=== PATIENT | male | born 1980 | race Caucasian/White ===

== ENCOUNTER 2018-07-15 13:17 | Inpatient (IN) | payer OTHER ==
[2018-07-15 17:15] VITALS: BMI 33.3
--- NOTE | 2018-07-15 21:21 | HP ---
CIWA Score - CIWA Score Nausea/Vomitin Muscle Tremors: 2 Anxiety: 3 Agitation: 4-Moderately Restless Paroxysmal Sweats: 2 Orientation: 0-Oriented Tacttile Disturbances: 3-Moderate Itch/Numb/Burn Auditory Disturbances: 0-None Visual Disturbances: 0-None Headache: 0-None Present CIWA-Ar Total Score: 17 Admission ROS BHS - HPI Chief Complaint: alcohol withdrawal symptoms Allergies/Adverse Reactions: Allergies Allergy/AdvReac Type Severity Reaction Status Date / Time No Known Allergies Allergy Verified 03/10/16 21:34 History of Present Illness: 38 yo male with hx of chronic alcohol dependence is here seeking detox. Last detox [facility] May 2018. Reports hx of frequent EOTH related blackouts with last episode yesterday. Denies hx of DTS or seizures. PMHX: HTN, asthma, PTSD, depression and anxiety. Denies suicidal / homicidal ideation. Reports longets period of sobriety seven years while incarcerated, reports released from intermediate April 2018 and relapsed. Exam Limitations: No Limitations - Ebola screening Have you traveled outside of the country in the last 21 days: No Have you had contact with anyone from an Ebola affected area: No Have you been sick,other than usual withdrawal symptoms: No Do you have a fever: No - Review of Systems Constitutional: Chills, Changes in sleep, Other (anxiety) EENT: reports: No Symptoms Reported Respiratory: reports: No Symptoms reported Cardiac: reports: Lightheadedness, Palpitations GI: reports: Diarrhea, Nausea, Poor Appetite, Poor Fluid Intake, Abdominal cramping : reports: No Symptoms Reported Musculoskeletal: reports: No Symptoms Reported Integumentary: reports: No Symptoms Reported Neuro: reports: No Symptoms reported Endocrine: reports: Increased Thirst Hematology: reports: No Symptoms Reported Psychiatric: reports: Orientated x3, Anxious Other Systems: Reviewed and Negative Patient History - Patient Medical History Hx Anemia: No Hx Asthma: Yes Hx Chronic Obstructive Pulmonary Disease (COPD): No Hx Cancer: No Hx Cardiac Disorders: No Hx Congestive Heart Failure: No Hx Hypertension: Yes Hx Hypercholesterolemia: No Hx Pacemaker: No HX Cerebrovascular Accident: No Hx Seizures: No Hx Dementia: No Hx Diabetes: No Hx Gastrointestinal Disorders: No Hx Liver Disease: No Hx Genitourinary Disorders: No Hx Sexually Transmitted Disorders: No Hx Renal Disease (ESRD): No Hx Thyroid Disease: No Hx Human Immunodeficiency Virus (HIV): No (LAST 07/23/15 NEGATIVE) Hx Hepatitis C: No Hx Depression: Yes (AND ANXIETY - ON trazodone, seroquel AND ZOLOFT) Hx Suicide Attempt: No Hx Bipolar Disorder: No Hx Schizophrenia: No - Patient Surgical History Past Surgical History: No Hx Neurologic Surgery: No Hx Cataract Extraction: No Hx Cardiac Surgery: No Hx Lung Surgery: No Hx Breast Surgery: No Hx Breast Biopsy: No Hx Abdominal Surgery: No Hx Appendectomy: No Hx Cholecystectomy: No Hx Genitourinary Surgery: No Hx Section: No Hx Orthopedic Surgery: No Anesthesia Reaction: No - PPD History Previous Implant?: Yes Documented Results: Negative w/proof Date: 10/11/15 Results: 0 mm PPD to be Administered?: Yes - Smoking Cessation Smoking history: Current every day smoker Have you smoked in the past 12 months: No Aproximately how many cigarettes per day: 3 Hx Chewing Tobacco Use: No Initiated information on smoking cessation: Yes 'Breaking Loose' booklet given: 07/15/18 - Substance & Tx. History Hx Alcohol Use: Yes Hx Substance Use: Yes Substance Use Type: Alcohol Hx Substance Use Treatment: Yes ([facility] May 2018.) - Substances Abused Alcohol Route: Oral Frequency: Daily Amount used: 3 pints vodka + 22 oz x 2 beers Age of first use: 8 Date of Last Use: 07/15/18 Family Disease History - Family Disease History Family Disease History: Other: Father (ALCOHOL,DSA), Mother (WAS ADDICTED TO DRUGS AND STOPPED NOW) Admission Physical Exam BHS - Vital Signs Vital Signs: Vital Signs - 24 hr 07/15/18 17:13 Temperature 98.3 F Pulse Rate 119 H Respiratory 18 Rate Blood Pressure 129/85 - Physical General Appearance: Yes: Disheveled, Moderate Distress, Obese, Sweating, Anxious HEENTM: Yes: Hearing grossly Normal, Normal ENT Inspection, Normocephalic, Normal Voice, REBECA, Pharynx Normal, Tm's normal Respiratory: Yes: Chest Non-Tender, Lungs Clear, Normal Breath Sounds, No Respiratory Distress, No Accessory Muscle Use Neck: Yes: Within Normal Limits Breast: Yes: Breast Exam Deferred Cardiology: Yes: Regular Rhythm, Tachycardia Abdominal: Yes: Normal Bowel Sounds, Non Tender, Soft, Protuberent Genitourinary: Yes: Within Normal Limits Back: Yes: Normal Inspection Extremities: Yes: Normal Capillary Refill, Normal Inspection, Normal Range of Motion, Non-Tender Neurological: Yes: pulverizer tender II-XII NML intact, Fully Oriented, Alert, Motor Strength 5/5, Depressed Affect Integumentary: Yes: Normal Color, Warm, Diaphoresis Lymphatic: Yes: Within Normal Limits - Diagnostic (1) Alcohol dependence with uncomplicated withdrawal Current Visit: Yes Status: Acute (2) Nicotine dependence Current Visit: Yes Status: Acute Qualifiers: Nicotine product type: cigarettes Substance use status: uncomplicated Qualified Code(s): F17.210 - Nicotine dependence, cigarettes, uncomplicated (3) Asthma Current Visit: Yes Status: Chronic Qualifiers: Asthma severity: mild intermittent Asthma complication type: uncomplicated Qualified Code(s): J45.20 - Mild intermittent asthma, uncomplicated (4) HTN (hypertension) Current Visit: Yes Status: Chronic Qualifiers: Hypertension type: essential hypertension Qualified Code(s): I10 - Essential (primary) hypertension Comment: no meds Cleared for Admission S - Detox or Rehab [facility] Level of Care: Medically Managed Detox Regimen/Protocol: Librium [facility] Breath Alcohol Content Breath Alcohol Content: 0.218 Urine Drug Screen - Results Drug Screen Negative: Yes
[2018-07-15] MEDS ORDERED: IBUPROFEN 400 MG TABLET (FP) PO PRN (21:25)
[2018-07-15] MEDS ORDERED: MAGNESIUM CITRATE 300 ML BOTTLE PO PRN (21:25)
[2018-07-15] MEDS ORDERED: MENTHOL/PHENOL 1 EACH UD MM PRN (21:25)
[2018-07-15] MEDS ORDERED: NICOTINE POLACRILEX 2 MG GUM BC PRN (21:25)
[2018-07-15] MEDS ORDERED: MAG HYDROX/AL HYDROX/SIMETH 30 ML UNIT-DOSE CUP PO PRN (21:25)
[2018-07-15] MEDS ORDERED: LOPERAMIDE HCL 2 MG CAPSULE PO PRN (21:25)
[2018-07-15] MEDS ORDERED: guaiFENesin/D-METHORPHAN HB 10 ML UNIT-DOSE CUPS PO PRN (21:25)
[2018-07-15] MEDS ORDERED: ACETAMINOPHEN 325 MG TABLET (FP) PO PRN (21:25)
[2018-07-15] MEDS ORDERED: MAGNESIUM HYDROX 2400MG/30ML ORAL SUSPENSION 30 ML CUP PO PRN (21:25)
[2018-07-15] MEDS ORDERED: P-EPHED 60MG/TRIPROLIDI 2.5MG TABLET PO PRN (21:25)
[2018-07-15] MEDS ORDERED: ALBUTEROL SO4 0.083% IH SOL 2.5 MG/3 ML VIAL.NEB. NEB PRN (21:32)
[2018-07-15] MEDS ORDERED: cloNIDine HCL 0.1 MG TABLET PO ONE (21:33)
[2018-07-15] MEDS ORDERED: MELATONIN 5 MG TABLETS PO PRN (22:00)
[2018-07-15] MEDS: chlordiazePOXIDE HCL 25 MG CAPSULE PO SCH (23:39)
[2018-07-15] MEDS: THIAMINE HCL 100 MG TABLET (FP) PO SCH (23:41)
[2018-07-16] MEDS: chlordiazePOXIDE HCL 25 MG CAPSULE PO SCH ×4 (05:55→22:20)
[2018-07-16] MEDS: ALBUTEROL SO4 8 GM HFA INHALER IH PRN (08:52)
--- NOTE | 2018-07-16 09:34 | EKG ---
Test Reason : Blood Pressure : / mmHG Vent. Rate : 106 BPM Atrial Rate : 106 BPM P-R Int : 142 ms QRS Dur : 104 ms QT Int : 348 ms P-R-T Axes : 058 -16 040 degrees QTc Int : 462 ms SINUS TACHYCARDIA INCOMPLETE RIGHT BUNDLE BRANCH BLOCK NO PREVIOUS ECGS AVAILABLE Confirmed by JANIE ESTRADA MD ([id number]) on 07/16/2018 9:34:27 AM Referred By: Confirmed By:JANIE ESTRADA MD
[2018-07-16] MEDS: LORATADINE 10 MG TABLET PO SCH (10:15)
[2018-07-16] MEDS: NICOTINE 14 MG/24 HOURS TOPICAL PATCH TD SCH (10:15)
[2018-07-16] MEDS: PRENATAL VITAMINS W/ FOLIC ACID TABLET (FP) PO SCH (10:15)
--- NOTE | 2018-07-16 10:40 | PN ---
S CIWA - CIWA Score Nausea/Vomitin-No Nausea/No Vomiting Muscle Tremors: None Anxiety: 1-Mildly Anxious Agitation: 1-Slight > Activity Paroxysmal Sweats: No Perspiration Orientation: 0-Oriented Tacttile Disturbances: 0-None Auditory Disturbances: 0-None Visual Disturbances: 0-None Headache: 0-None Present CIWA-Ar Total Score: 2 BHS Progress Note (SOAP) Subjective: PATIENT PRESENTS WITH MILD ANXIETY AND PACING IN HALLWAY Objective: 07/16/18 10:39 Vital Signs Temperature 97.4 F L 07/16/18 09:53 Pulse Rate 98 H 07/16/18 09:53 Respiratory Rate 20 07/16/18 09:53 Blood Pressure 127/88 07/16/18 09:53 O2 Sat by Pulse Oximetry (%) PE: ALERT AND ORIENTED SKIN WARM AND DRY CAR S1S2 RESP CTA BL EXT NO EDEMA Assessment: 07/16/18 10:39 WITHDRAWAL SYNDROME Plan: CONTINUE ORAL FLUIDS CONTINUE DETOX PER PROTOCOL CONTINUE TO MONITOR CLINICALLY
[2018-07-16 11:13] LABS: HEMATOCRIT 40.6 % (35.4-49); HEMOGLOBIN 13.5 GM/dL (11.7-16.9); MCHC 33.1 g/dl (32.0-35.9); MEAN CELL VOLUME 87.5 fl (80-96); MEAN PLT VOLUME 7.3 fl (7.5-11.1); PLATELET COUNT 285 K/MM3 (134-434); RBC 4.64 M/mm3 (4.00-5.60); RDW 14.5 % (11.9-15.9); WHITE BLOOD COUNT 6.5 K/mm3 (4.0-10.0)
[2018-07-16 11:20] LABS: CHLORIDE 106 mmol/L (98-107); POTASSIUM 3.4 mmol/L (3.5-5.1); SODIUM 146 mmol/L (136-145)
[2018-07-16 11:32] LABS: ALBUMIN 3.7 g/dl (3.4-5.0); ALK PHOS 100 U/L (45-117); ANION GAP 13 MMOL/L (8-16); BILIRUBIN,TOTAL 0.6 mg/dL (0.2-1.0); BLOOD UREA NITROGEN 13 mg/dL (7-18); CALCIUM 8.5 mg/dL (8.5-10.1); CO2 27 mmol/L (21-32); CREATININE 0.8 mg/dL (0.55-1.3); GLUCOSE,RANDOM 110 mg/dL (74-106); SGOT/AST 31 U/L (15-37); SGPT/ALT 39 U/L (13-61); TOT PROT 7.2 g/dl (6.4-8.2)
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
[2018-07-16] MEDS: chlordiazePOXIDE HCL 25 MG CAPSULE PO PRN (14:22)
[2018-07-16 15:55] LABS: URINE APPEARANCE CLEAR; URINE BILIRUBIN NEGATIVE (<2.0 mg/dL); URINE COLOR YELLOW; URINE GLUCOSE (UA) NEGATIVE (NEGATIVE); URINE KETONE NEGATIVE (NEGATIVE); URINE LEUK ESTERASE NEGATIVE (NEGATIVE); URINE NITRITE NEGATIVE (NEGATIVE); URINE PROTEIN NEGATIVE (NEGATIVE); URINE UROBILINOGEN NEGATIVE mg/dL (0.2-1.0)
[2018-07-16] MEDS: THIAMINE HCL 100 MG TABLET (FP) PO SCH (22:20)
[2018-07-17] MEDS: chlordiazePOXIDE HCL 25 MG CAPSULE PO SCH ×3 (05:15→17:13)
[2018-07-17] MEDS: LORATADINE 10 MG TABLET PO SCH (10:32)
[2018-07-17] MEDS: NICOTINE 14 MG/24 HOURS TOPICAL PATCH TD SCH (10:32)
[2018-07-17] MEDS: PRENATAL VITAMINS W/ FOLIC ACID TABLET (FP) PO SCH (10:32)
[2018-07-17 11:59] LABS: ANION GAP 11 MMOL/L (8-16); BLOOD UREA NITROGEN 7 mg/dL (7-18); CALCIUM 8.6 mg/dL (8.5-10.1); CHLORIDE 103 mmol/L (98-107); CO2 29 mmol/L (21-32); CREATININE 0.8 mg/dL (0.55-1.3); GLUCOSE,RANDOM 87 mg/dL (74-106); POTASSIUM 3.6 mmol/L (3.5-5.1); SODIUM 143 mmol/L (136-145)
--- NOTE | 2018-07-17 14:03 | PN ---
BHS Progress Note (SOAP) Subjective: doing well with detox meds , denies symptoms Objective: 07/17/18 14:02 aaox 3 , ambulating freely , nad Assessment: 07/17/18 14:02 alcohol dependence Plan: continue taper
[2018-07-17] MEDS: chlordiazePOXIDE HCL 25 MG CAPSULE PO PRN (14:40)
[2018-07-17] MEDS: chlordiazePOXIDE 5 MG CAPSULE PO SCH (22:19)
[2018-07-17] MEDS: THIAMINE HCL 100 MG TABLET (FP) PO SCH (22:19)
[2018-07-17] MEDS: ALBUTEROL SO4 8 GM HFA INHALER IH PRN (22:21)
[2018-07-18] MEDS: chlordiazePOXIDE 5 MG CAPSULE PO SCH ×3 (05:48→17:09)
[2018-07-18] MEDS: LORATADINE 10 MG TABLET PO SCH (10:25)
[2018-07-18] MEDS: PRENATAL VITAMINS W/ FOLIC ACID TABLET (FP) PO SCH (10:25)
[2018-07-18] MEDS: NICOTINE 14 MG/24 HOURS TOPICAL PATCH TD SCH (10:26)
--- NOTE | 2018-07-18 14:36 | PN ---
S Progress Note (SOAP) Subjective: Denies any complaints; appears anxious Objective: 07/18/18 14:34 Last Vital Signs Temp Pulse Resp BP Pulse Ox 97.8 F 98 H 18 127/89 07/18/18 13:49 07/18/18 13:49 07/18/18 13:49 07/18/18 13:49 Laboratory Tests 07/16/18 07/16/18 07/16/18 07:20 07:20 07:20 WBC 6.5 RBC 4.64 Hgb 13.5 Hct 40.6 MCV 87.5 MCH 29.0 MCHC 33.1 RDW 14.5 Plt Count 285 D MPV 7.3 L Sodium 146 H Potassium 3.4 L Chloride 106 Carbon Dioxide 27 Anion Gap 13 BUN 13 Creatinine 0.8 Creat Clearance w eGFR > 60 Random Glucose 110 H Calcium 8.5 Total Bilirubin 0.6 AST 31 ALT 39 Alkaline Phosphatase 100 Total Protein 7.2 Albumin 3.7 Urine Color Urine Appearance Urine pH Ur Specific [place] Urine Protein Urine Glucose (UA) Urine Ketones Urine Blood Urine Nitrite Urine Bilirubin Urine Urobilinogen Ur Leukocyte Esterase RPR Titer Nonreactive 07/16/18 07/17/18 13:00 07:50 WBC RBC Hgb Hct MCV MCH MCHC RDW Plt Count MPV Sodium 143 Potassium 3.6 Chloride 103 Carbon Dioxide 29 Anion Gap 11 BUN 7 Creatinine 0.8 Creat Clearance w eGFR > 60 Random Glucose 87 Calcium 8.6 Total Bilirubin AST ALT Alkaline Phosphatase Total Protein Albumin Urine Color Yellow Urine Appearance Clear Urine pH 7.0 Ur Specific [place] 1.019 Urine Protein Negative Urine Glucose (UA) Negative Urine Ketones Negative Urine Blood Negative Urine Nitrite Negative Urine Bilirubin Negative Urine Urobilinogen Negative Ur Leukocyte Esterase Negative RPR Titer Labs reviewed Assessment: 07/18/18 14:35 Withdrawal symptoms Plan: Continue detox Encouraged PO water hydration
[2018-07-18] MEDS: ALBUTEROL SO4 8 GM HFA INHALER IH PRN (22:11)
[2018-07-18] MEDS: THIAMINE HCL 100 MG TABLET (FP) PO SCH (22:11)
[2018-07-18] MEDS: chlordiazePOXIDE HCL 10 MG CAPSULE PO SCH (22:11)
[2018-07-19] MEDS: chlordiazePOXIDE HCL 10 MG CAPSULE PO SCH ×2 (06:05→10:38)
[2018-07-19 09:13] VITALS: BP 132/81; PULSE 93; TEMP 98.4
--- NOTE | 2018-07-19 10:30 | DS ---
[facility] Detox Discharge Summary Admission Date: 07/15/18 Discharge Date: 07/19/18 - History Additional Comments: Pt in stable conditions, being discharged. Pt states he is going back to his [facility] treatment center - [facility] program. States he does not have a PCP but is in the process of getting one. Does not need albuterol rx, said he has his own. Pertinent Past History: Asthma Psych Hx - Physical Exam Results Vital Signs: Vital Signs Temperature 98.4 F 07/19/18 09:12 Pulse Rate 93 H 07/19/18 09:12 Respiratory Rate 20 07/19/18 09:12 Blood Pressure 132/81 07/19/18 09:12 O2 Sat by Pulse Oximetry (%) Pertinent Admission Physical Exam Findings: withdrawal sx - Treatment Hospital Course: Detox Protocol Followed Patient has Accepted a Rehab Referral to: [facility] - Medication Discharge Medications: Ambulatory Orders Albuterol Sulfate Inhaler - [Ventolin HFA Inhaler -] 1 - 2 inh PO Q4H 11/28/15 - Diagnosis (1) Alcohol dependence with uncomplicated withdrawal Current Visit: Yes Status: Acute (2) Asthma Current Visit: Yes Status: Chronic Qualifiers: Asthma severity: mild intermittent Asthma complication type: uncomplicated Qualified Code(s): J45.20 - Mild intermittent asthma, uncomplicated (3) Nicotine dependence Current Visit: Yes Status: Chronic Qualifiers: Nicotine product type: cigarettes Substance use status: uncomplicated Qualified Code(s): F17.210 - Nicotine dependence, cigarettes, uncomplicated (4) Anxiety and depression Current Visit: Yes Status: Chronic (5) Chronic low back pain Current Visit: Yes Status: Chronic (6) Drug-induced mood disorder Current Visit: Yes Status: Chronic - AMA Did Patient Leave Against Medical Advice: No
--- NOTE | 2018-07-19 10:34 | PN ---
BHS Progress Note (SOAP) Subjective: denies any complaint Objective: 07/19/18 10:33 A & O x 3 Gait steady Vital Signs Temperature 98.4 F 07/19/18 09:12 Pulse Rate 93 H 07/19/18 09:12 Respiratory Rate 20 07/19/18 09:12 Blood Pressure 132/81 07/19/18 09:12 O2 Sat by Pulse Oximetry (%) Assessment: 07/19/18 10:33 detox safely concluded Plan: for discharge
[2018-07-19] MEDS: LORATADINE 10 MG TABLET PO SCH (10:37)
[2018-07-19] MEDS: NICOTINE 14 MG/24 HOURS TOPICAL PATCH TD SCH (10:37)
[2018-07-19] MEDS: PRENATAL VITAMINS W/ FOLIC ACID TABLET (FP) PO SCH (10:37)
== END 2018-07-19 10:48 | disposition home or self-care (01) | DRG 775 ==
LOC: YASAS 13:17 → Y3N 20:42
PROC: HZ2ZZZZ Detoxification Services for Substance Abuse Treatment (ICD-10-PCS; principal; 2018-07-15)
DX: F10.230 Alcohol dependence with withdrawal, uncomplicated (principal); F17.210 Nicotine dependence, cigarettes, uncomplicated; F10.24 Alcohol dependence with alcohol-induced mood disorder; F19.24 Other psychoactive substance dependence with psychoactive substance-induced mood disorder; F41.8 Other specified anxiety disorders; F33.9 Major depressive disorder, recurrent, unspecified; F43.10 Post-traumatic stress disorder, unspecified; I10 Essential (primary) hypertension; J45.20 Mild intermittent asthma, uncomplicated; M54.5 Low back pain; G89.29 Other chronic pain; Z91.5 Personal history of self-harm
CPT/HCPCS: 36415; 80048; 80053; 81003; 85027; 86593; 93005; 93010; J0735

== ENCOUNTER 2018-11-26 11:19 | Inpatient (IN) | payer OTHER ==
[2018-11-26 11:48] VITALS: BMI 31.9
--- NOTE | 2018-11-26 12:03 | HP ---
CIWA Score Nausea/Vomitin Muscle Tremors: 3 Anxiety: 3 Agitation: 2 Paroxysmal Sweats: 2 Orientation: 0-Oriented Tacttile Disturbances: 1-Very Mild Itch/Numbness Auditory Disturbances: 1-Very Mild (HEARS VOICES WHEN WITHDRAWING) Visual Disturbances: 1-Very Mild Sensitivity (SEES SHADOWS MOVING - DISAPPEARING ) Headache: 0-None Present CIWA-Ar Total Score: 16 - Admission Criteria [facility] Guidelines: Admission for Medically Managed Detox: Requires at least one of the followin. CIWA greater than 12 2. Seizures within the past 24 hours 3. Delirium tremens within the past 24 hours 4. Hallucinations within the past 24 hours 5. Acute intervention needed for co occurring medical disorder 6. Acute intervention needed for co occurring psychiatric disorder 7. Severe withdrawal that cannot be handled at a lower level of care (continued vomiting, continued diarrhea, abnormal vital signs) requiring intravenous medication and/or fluids 8. Patient presents the following: CIWA greater than 12 Admission Criteria Met: Admission criteria met Admission ROS BHS - HPI Chief Complaint: i'M TIRED OF FEELING SICK AFTER DRINKING Allergies/Adverse Reactions: Allergies Allergy/AdvReac Type Severity Reaction Status Date / Time No Known Allergies Allergy Verified 07/15/18 22:46 History of Present Illness: 38 Y/O M PT WITH H/O ETOH DEP. SEEKING DETOX AND REHAB Exam Limitations: No Limitations - Ebola screening Have you traveled outside of the country in the last 21 days: No Have you had contact with anyone from an Ebola affected area: No Have you been sick,other than usual withdrawal symptoms: No Do you have a fever: No - Review of Systems Constitutional: Loss of Appetite, Malaise, Changes in sleep, Unexplained wgt Loss (10 LBS X 3 WEEKS) EENT: reports: Ear Pain (RT EAR PAIN 2 DAYS AGO.) Respiratory: reports: Wheezing Cardiac: reports: No Symptoms Reported GI: reports: Diarrhea, Nausea, Poor Appetite, Vomiting, Indigestion : reports: No Symptoms Reported Musculoskeletal: reports: No Symptoms Reported Integumentary: reports: No Symptoms Reported Neuro: reports: Tremors, Other (BLACKOUTS LAST 1 WEEK AGO) Endocrine: reports: No Symptoms Reported Hematology: reports: No Symptoms Reported Psychiatric: reports: Anxious, Depressed Other Systems: Reviewed and Negative Patient History - Patient Medical History Hx Anemia: No Hx Asthma: Yes (ALBUTEROL ) Hx Chronic Obstructive Pulmonary Disease (COPD): No Hx Cancer: No Hx Cardiac Disorders: No Hx Congestive Heart Failure: No Hx Hypertension: Yes (NO MEDS ) Hx Hypercholesterolemia: No Hx Pacemaker: No HX Cerebrovascular Accident: No Hx Seizures: No Hx Dementia: No Hx Diabetes: No Hx Gastrointestinal Disorders: No Hx Liver Disease: No Hx Genitourinary Disorders: No Hx Sexually Transmitted Disorders: No Hx Renal Disease (ESRD): No Hx Thyroid Disease: No Hx Human Immunodeficiency Virus (HIV): No (LAST 07/23/15 NEGATIVE) Hx Hepatitis C: No Hx Depression: Yes (AND ANXIETY - ON trazodone, seroquel AND ZOLOFT) Hx Suicide Attempt: No Hx Bipolar Disorder: No Hx Schizophrenia: No Other Medical History: LOW BACK PAINS - Patient Surgical History Past Surgical History: No Hx Neurologic Surgery: No Hx Cataract Extraction: No Hx Cardiac Surgery: No Hx Lung Surgery: No Hx Breast Surgery: No Hx Breast Biopsy: No Hx Abdominal Surgery: No Hx Appendectomy: No Hx Cholecystectomy: No Hx Genitourinary Surgery: No Hx Section: No Hx Orthopedic Surgery: No Anesthesia Reaction: No - PPD History Date: 07/17/18 Results: 0 mm PPD to be Administered?: No - Reproductive History Patient is a Female of Child Bearing Age (11 -55 yrs old): No - Smoking Cessation Smoking history: Current every day smoker Have you smoked in the past 12 months: No Aproximately how many cigarettes per day: 3 Cigars Per Day: 0 Hx Chewing Tobacco Use: No Initiated information on smoking cessation: Yes 'Breaking Loose' booklet given: 11/26/18 - Substance & Tx. History Hx Alcohol Use: Yes Hx Substance Use: Yes Substance Use Type: Alcohol, Marijuana - Substances Abused Alcohol Route: Oral Frequency: Daily Amount used: VODKA 1- FIFTH /DAY Age of first use: 11 Date of Last Use: 11/26/18 Marijuana/Hashish Route: Smoking Frequency: 1-3 times last 30 days Amount used: 2-3 PUFFS Age of first use: 11 Date of Last Use: 11/24/18 Family Disease History - Family Disease History Family Disease History: Other: Father (ALCOHOL,DSA), Mother (WAS ADDICTED TO DRUGS AND STOPPED NOW) Admission Physical Exam BHS - Vital Signs Vital Signs: Vital Signs - 24 hr 11/26/18 11:47 Temperature 98.4 F Pulse Rate 116 H Respiratory 18 Rate Blood Pressure 136/92 38 Y/O M PT AOX3, ANXIOUS , TREMULOUS, COOPERATING WITH EXAM. - Physical General Appearance: Yes: Appropriately Dressed, Obese, Tremorous, Sweating, Anxious HEENTM: Yes: EOMI, Hearing grossly Normal, Normal ENT Inspection, Normocephalic , Normal Voice, REBECA, Pharynx Normal Respiratory: Yes: Chest Non-Tender, Lungs Clear, Normal Breath Sounds, No Respiratory Distress Neck: Yes: No masses,lesions,Nodules, Supple, Trachea in good position Breast: Yes: Breast Exam Deferred, Within Normal Limits Cardiology: Yes: Within Normal Limits, Regular Rhythm, S1, S2, Tachycardia Abdominal: Yes: Soft, Increased Bowel Sounds, Tenderness (DIFFUSE TENDERNESS , NO REBOUND) Genitourinary: Yes: Frequency Back: Yes: Within Normal Limits, Decreased Range of Motion Musculoskeletal: Yes: Back pain Extremities: Yes: Tremors Neurological: Yes: claim manager II-XII NML intact, Fully Oriented, Alert, Normal Response Integumentary: Yes: Diaphoresis Lymphatic: Yes: Within Normal Limits - Diagnostic (1) Cannabis abuse Current Visit: Yes Status: Chronic (2) Alcohol dependence Current Visit: Yes Status: Chronic Qualifiers: Substance use status: uncomplicated Qualified Code(s): F10.20 - Alcohol dependence, uncomplicated (3) Anxiety and depression Current Visit: Yes Status: Chronic (4) Asthma Current Visit: Yes Status: Chronic Qualifiers: Asthma severity: mild Asthma complication type: uncomplicated Qualified Code(s): J45.20 - Mild intermittent asthma, uncomplicated (5) Chronic low back pain Current Visit: Yes Status: Chronic Qualifiers: Back pain laterality: unspecified (6) Nicotine abuse Current Visit: Yes Status: Chronic Cleared for Admission [facility] - Detox or Rehab [facility] Level of Care: Medically Managed Detox Regimen/Protocol: Librium [facility] Breath Alcohol Content Breath Alcohol Content: 0.060 Urine Drug Screen - Results Drug Screen Negative: No Urine Drug Screen Results: THC-Marijuana
[2018-11-26] MEDS ORDERED: MAGNESIUM CITRATE 300 ML BOTTLE PO PRN (12:26)
[2018-11-26] MEDS ORDERED: ACETAMINOPHEN 325 MG TABLET (FP) PO PRN (12:26)
[2018-11-26] MEDS ORDERED: MAGNESIUM HYDROX 2400MG/30ML ORAL SUSPENSION 30 ML CUP PO PRN (12:26)
[2018-11-26] MEDS ORDERED: guaiFENesin/D-METHORPHAN HB 10 ML UNIT-DOSE CUPS PO PRN (12:26)
[2018-11-26] MEDS ORDERED: MAG HYDROX/AL HYDROX/SIMETH 30 ML UNIT-DOSE CUP PO PRN (12:26)
[2018-11-26] MEDS ORDERED: IBUPROFEN 400 MG TABLET (FP) PO PRN (12:26)
[2018-11-26] MEDS ORDERED: MENTHOL/PHENOL 1 EACH UD MM PRN (12:26)
[2018-11-26] MEDS ORDERED: P-EPHED 60MG/TRIPROLIDI 2.5MG TABLET PO PRN (12:26)
[2018-11-26] MEDS ORDERED: ALBUTEROL SO4 8 GM HFA INHALER IH PRN (12:28)
[2018-11-26] MEDS: chlordiazePOXIDE HCL 25 MG CAPSULE PO PRN (14:18)
[2018-11-26] MEDS: LOPERAMIDE HCL 2 MG CAPSULE PO PRN ×2 (14:18→23:24)
[2018-11-26] MEDS: chlordiazePOXIDE HCL 25 MG CAPSULE PO SCH ×2 (18:22→23:24)
[2018-11-26] MEDS ORDERED: MELATONIN 5 MG TABLETS PO PRN (22:00)
[2018-11-26] MEDS: THIAMINE HCL 100 MG TABLET (FP) PO SCH (23:27)
[2018-11-27] MEDS: chlordiazePOXIDE HCL 25 MG CAPSULE PO SCH ×2 (05:06→10:42)
[2018-11-27] MEDS: PRENATAL VITAMINS W/ FOLIC ACID TABLET (FP) PO SCH (10:41)
[2018-11-27 11:01] LABS: HEMATOCRIT 45.3 % (35.4-49); HEMOGLOBIN 15.6 GM/dL (11.7-16.9); MCH 31.1 pg (25.7-33.7); MCHC 34.5 g/dl (32.0-35.9); MEAN CELL VOLUME 90.2 fl (80-96); MEAN PLT VOLUME 8.2 fl (7.5-11.1); PLATELET COUNT 255 K/MM3 (134-434); RBC 5.02 M/mm3 (4.00-5.60); RDW 15.3 % (11.9-15.9); WHITE BLOOD COUNT 11.1 K/mm3 (4.0-10.0)
[2018-11-27 11:24] LABS: ALBUMIN 4.4 g/dl (3.4-5.0); ALK PHOS 104 U/L (45-117); ANION GAP 8 MMOL/L (8-16); BILIRUBIN,TOTAL 0.9 mg/dL (0.2-1); BLOOD UREA NITROGEN 9 mg/dL (7-18); CALCIUM 9.1 mg/dL (8.5-10.1); CHLORIDE 98 mmol/L (98-107); CO2 29 mmol/L (21-32); CREATININE 1.1 mg/dL (0.55-1.3); GLUCOSE,RANDOM 88 mg/dL (74-106); SGOT/AST 65 U/L (15-37); SGPT/ALT 61 U/L (13-61); SODIUM 135 mmol/L (136-145); TOT PROT 8.6 g/dl (6.4-8.2)
[2018-11-27] MEDS ORDERED: FLU VACCINE QUAD 60 MCG/0.5 ML (MDV 18-19) IM ONE (12:00)
--- NOTE | 2018-11-27 12:19 | PN ---
S CIWA - CIWA Score Nausea/Vomitin Muscle Tremors: 2 Anxiety: 2 Agitation: 2 Paroxysmal Sweats: 2 Orientation: 0-Oriented Tacttile Disturbances: 1-Very Mild Itch/Numbness Auditory Disturbances: 1-Very Mild Visual Disturbances: 0-None Headache: 0-None Present CIWA-Ar Total Score: 12 S Progress Note (SOAP) Subjective: N/D, abdominal discomfort and back pain Objective: 11/27/18 12:16 Vital Signs 11/27/18 11/27/18 11/27/18 06:00 06:20 09:43 Temperature 98.2 F 98.2 F Pulse Rate 78 81 Respiratory 18 18 18 Rate Blood Pressure 135/85 117/59 L Laboratory Last Values WBC 11.1 K/mm3 (4.0-10.0) H 11/27/18 05:40 RBC 5.02 M/mm3 (4.00-5.60) 11/27/18 05:40 Hgb 15.6 GM/dL (11.7-16.9) 11/27/18 05:40 Hct 45.3 % (35.4-49) 11/27/18 05:40 MCV 90.2 fl (80-96) 11/27/18 05:40 MCH 31.1 pg (25.7-33.7) 11/27/18 05:40 MCHC 34.5 g/dl (32.0-35.9) 11/27/18 05:40 RDW 15.3 % (11.9-15.9) 11/27/18 05:40 Plt Count 255 K/MM3 (134-434) 11/27/18 05:40 MPV 8.2 fl (7.5-11.1) D 11/27/18 05:40 Sodium 135 mmol/L (136-145) L 11/27/18 05:40 Potassium 3.0 mmol/L (3.5-5.1) L 11/27/18 05:40 Chloride 98 mmol/L (98-107) 11/27/18 05:40 Carbon Dioxide 29 mmol/L (21-32) 11/27/18 05:40 Anion Gap 8 MMOL/L (8-16) 11/27/18 05:40 BUN 9 mg/dL (7-18) 11/27/18 05:40 Creatinine 1.1 mg/dL (0.55-1.3) 11/27/18 05:40 Creat Clearance w eGFR > 60 (>60) 11/27/18 05:40 Random Glucose 88 mg/dL (74-106) 11/27/18 05:40 Calcium 9.1 mg/dL (8.5-10.1) 11/27/18 05:40 Total Bilirubin 0.9 mg/dL (0.2-1) 11/27/18 05:40 AST 65 U/L (15-37) H 11/27/18 05:40 ALT 61 U/L (13-61) 11/27/18 05:40 Alkaline Phosphatase 104 U/L (45-117) 11/27/18 05:40 Total Protein 8.6 g/dl (6.4-8.2) H 11/27/18 05:40 Albumin 4.4 g/dl (3.4-5.0) 11/27/18 05:40 HIV 1&2 Antibody Screen Negative 11/26/18 13:30 HIV P24 Antigen Negative 11/26/18 13:30 Labs noted-low potassium and sodium levels Assessment: 11/27/18 12:17 Withdrawal sx Hypokalemia Plan: Continue detox Potassium 40 meq PO QD Repeat BMP on 11/29
[2018-11-27] MEDS: POTASSIUM CHLORIDE TABS 20 MEQ TABLET.ER (FP) PO SCH (13:06)
--- NOTE | 2018-11-27 13:25 | EKG ---
Test Reason : Blood Pressure : / mmHG Vent. Rate : 110 BPM Atrial Rate : 110 BPM P-R Int : 140 ms QRS Dur : 104 ms QT Int : 326 ms P-R-T Axes : 052 015 049 degrees QTc Int : 441 ms SINUS TACHYCARDIA INCOMPLETE RIGHT BUNDLE BRANCH BLOCK WHEN COMPARED WITH ECG OF 15-JUL-2018 23:22, NO SIGNIFICANT CHANGE WAS FOUND Confirmed by JANIE ESTRADA MD ([id number]) on 11/27/2018 1:25:42 PM Referred By: Confirmed By:JANIE ESTRADA MD
[2018-11-28] MEDS: chlordiazePOXIDE HCL 25 MG CAPSULE PO SCH ×4 (01:22→10:07)
[2018-11-28] MEDS: THIAMINE HCL 100 MG TABLET (FP) PO SCH ×2 (01:23→23:27)
[2018-11-28] MEDS: chlordiazePOXIDE HCL 25 MG CAPSULE PO PRN (03:11)
[2018-11-28] MEDS: LOPERAMIDE HCL 2 MG CAPSULE PO PRN (05:53)
[2018-11-28] MEDS: POTASSIUM CHLORIDE TABS 20 MEQ TABLET.ER (FP) PO SCH (10:07)
[2018-11-28] MEDS: PRENATAL VITAMINS W/ FOLIC ACID TABLET (FP) PO SCH (10:07)
--- NOTE | 2018-11-28 15:13 | PN ---
[facility] CIWA - CIWA Score Nausea/Vomitin-Mild Nausea/No Vomiting Muscle Tremors: 3 Anxiety: 3 Agitation: 2 Paroxysmal Sweats: 3 Orientation: 0-Oriented Tacttile Disturbances: 0-None Auditory Disturbances: 0-None Visual Disturbances: 0-None Headache: 0-None Present CIWA-Ar Total Score: 12 S Progress Note (SOAP) Subjective: Restless, interrupted sleep, anxious Objective: 11/28/18 15:08 Last Vital Signs Temp Pulse Resp BP Pulse Ox 98.4 F 88 18 118/73 11/28/18 14:27 11/28/18 14:27 11/28/18 14:27 11/28/18 14:27 Laboratory Tests 11/26/18 11/27/18 11/27/18 13:30 05:40 05:40 WBC 11.1 H RBC 5.02 Hgb 15.6 Hct 45.3 MCV 90.2 MCH 31.1 MCHC 34.5 RDW 15.3 Plt Count 255 MPV 8.2 D Sodium 135 L Potassium 3.0 L Chloride 98 Carbon Dioxide 29 Anion Gap 8 BUN 9 Creatinine 1.1 Creat Clearance w eGFR > 60 Random Glucose 88 Calcium 9.1 Total Bilirubin 0.9 AST 65 H ALT 61 Alkaline Phosphatase 104 Total Protein 8.6 H Albumin 4.4 RPR Titer HIV 1&2 Antibody Screen Negative HIV P24 Antigen Negative 11/27/18 05:40 WBC RBC Hgb Hct MCV MCH MCHC RDW Plt Count MPV Sodium Potassium Chloride Carbon Dioxide Anion Gap BUN Creatinine Creat Clearance w eGFR Random Glucose Calcium Total Bilirubin AST ALT Alkaline Phosphatase Total Protein Albumin RPR Titer Nonreactive HIV 1&2 Antibody Screen HIV P24 Antigen Labs reviewed: wbc 11.1, K 3.0 Assessment: 11/28/18 15:09 Withdrawal symptoms Noted with leukocytosis and hypokalemia Plan: Continue detox Encouraged PO water hydration Leukocytosis: asymptomatic, repeat CBC in AM Hypokalemia: replenished, repeat serum K+ level in AM (bmp already ordered)
[2018-11-28] MEDS: chlordiazePOXIDE 5 MG CAPSULE PO SCH ×2 (23:27→23:28)
[2018-11-29] MEDS: chlordiazePOXIDE HCL 25 MG CAPSULE PO PRN (02:35)
[2018-11-29] MEDS: chlordiazePOXIDE 5 MG CAPSULE PO SCH ×2 (05:35→10:09)
[2018-11-29 09:45] LABS: BASO % 0.8 % (0-2.0); EOS % 3.2 % (0-4.5); HEMATOCRIT 41.1 % (35.4-49); HEMOGLOBIN 14.4 GM/dL (11.7-16.9); LYMPH % 20.8 % (8-40); MCH 31.6 pg (25.7-33.7); MEAN CELL VOLUME 90.1 fl (80-96); MEAN PLT VOLUME 7.6 fl (7.5-11.1); MONO % 10.3 % (3.8-10.2); NEUT % 64.9 % (42.8-82.8); PLATELET COUNT 230 K/MM3 (134-434); RBC 4.56 M/mm3 (4.00-5.60); RDW 15.6 % (11.9-15.9); WHITE BLOOD COUNT 5.6 K/mm3 (4.0-10.0)
[2018-11-29 09:54] LABS: URINE APPEARANCE CLEAR; URINE BILIRUBIN NEGATIVE (<2.0 mg/dL); URINE COLOR STRAW; URINE GLUCOSE (UA) NEGATIVE (NEGATIVE); URINE KETONE NEGATIVE (NEGATIVE); URINE LEUK ESTERASE NEGATIVE (NEGATIVE); URINE NITRITE NEGATIVE (NEGATIVE); URINE PROTEIN NEGATIVE (NEGATIVE); URINE UROBILINOGEN NEGATIVE mg/dL (0.2-1.0)
[2018-11-29 10:00] LABS: ANION GAP 6 MMOL/L (8-16); BLOOD UREA NITROGEN 9 mg/dL (7-18); CALCIUM 8.6 mg/dL (8.5-10.1); CHLORIDE 107 mmol/L (98-107); CO2 28 mmol/L (21-32); CREATININE 0.7 mg/dL (0.55-1.3); GLUCOSE,RANDOM 82 mg/dL (74-106); POTASSIUM 4.3 mmol/L (3.5-5.1); SODIUM 141 mmol/L (136-145)
[2018-11-29] MEDS: POTASSIUM CHLORIDE TABS 20 MEQ TABLET.ER (FP) PO SCH (10:08)
[2018-11-29] MEDS: PRENATAL VITAMINS W/ FOLIC ACID TABLET (FP) PO SCH (10:08)
--- NOTE | 2018-11-29 14:13 | PN ---
[facility] Progress Note (SOAP) Subjective: Diarrhea (mild). Objective: PATIENT A & O X 3, OBSERVED AMBULATING ON UNIT. IN NO ACUTE DISTRESS. PATIENT DENIES ANY URINARY COMPLAINTS (BURNING, PAIN, FREQUENCY, URGENCY, HESITANCY). 11/29/18 14:10 Vital Signs Temperature 98.4 F 11/29/18 13:24 Pulse Rate 87 11/29/18 13:24 Respiratory Rate 16 11/29/18 13:24 Blood Pressure 131/76 11/29/18 13:24 O2 Sat by Pulse Oximetry (%) Laboratory Tests 11/26/18 11/27/18 11/27/18 13:30 05:40 05:40 WBC 11.1 H RBC 5.02 Hgb 15.6 Hct 45.3 MCV 90.2 MCH 31.1 MCHC 34.5 RDW 15.3 Plt Count 255 MPV 8.2 D Absolute Neuts (auto) Neutrophils % Lymphocytes % Monocytes % Eosinophils % Basophils % Nucleated RBC % Sodium 135 L Potassium 3.0 L Chloride 98 Carbon Dioxide 29 Anion Gap 8 BUN 9 Creatinine 1.1 Creat Clearance w eGFR > 60 Random Glucose 88 Calcium 9.1 Total Bilirubin 0.9 AST 65 H ALT 61 Alkaline Phosphatase 104 Total Protein 8.6 H Albumin 4.4 Urine Color Urine Appearance Urine pH Ur Specific [place] Urine Protein Urine Glucose (UA) Urine Ketones Urine Blood Urine Nitrite Urine Bilirubin Urine Urobilinogen Ur Leukocyte Esterase RPR Titer HIV 1&2 Antibody Screen Negative HIV P24 Antigen Negative 11/27/18 11/29/18 11/29/18 05:40 07:00 07:00 WBC RBC Hgb Hct MCV MCH MCHC RDW Plt Count MPV Absolute Neuts (auto) Neutrophils % Lymphocytes % Monocytes % Eosinophils % Basophils % Nucleated RBC % Sodium 141 Potassium 4.3 Chloride 107 Carbon Dioxide 28 Anion Gap 6 L BUN 9 Creatinine 0.7 Creat Clearance w eGFR > 60 Random Glucose 82 Calcium 8.6 Total Bilirubin AST ALT Alkaline Phosphatase Total Protein Albumin Urine Color Straw Urine Appearance Clear Urine pH 6.0 Ur Specific [place] 1.006 L Urine Protein Negative Urine Glucose (UA) Negative Urine Ketones Negative Urine Blood Negative Urine Nitrite Negative Urine Bilirubin Negative Urine Urobilinogen Negative Ur Leukocyte Esterase Negative RPR Titer Nonreactive HIV 1&2 Antibody Screen HIV P24 Antigen 11/29/18 07:00 WBC 5.6 RBC 4.56 Hgb 14.4 Hct 41.1 MCV 90.1 MCH 31.6 MCHC 35.0 RDW 15.6 Plt Count 230 MPV 7.6 Absolute Neuts (auto) 3.6 Neutrophils % 64.9 Lymphocytes % 20.8 Monocytes % 10.3 H Eosinophils % 3.2 Basophils % 0.8 Nucleated RBC % 0 Sodium Potassium Chloride Carbon Dioxide Anion Gap BUN Creatinine Creat Clearance w eGFR Random Glucose Calcium Total Bilirubin AST ALT Alkaline Phosphatase Total Protein Albumin Urine Color Urine Appearance Urine pH Ur Specific [place] Urine Protein Urine Glucose (UA) Urine Ketones Urine Blood Urine Nitrite Urine Bilirubin Urine Urobilinogen Ur Leukocyte Esterase RPR Titer HIV 1&2 Antibody Screen HIV P24 Antigen LABS NOTED. RESULTS OF BMP, UA , AND REPEAT CBC NOTED. WBC AND K LEVELS NOW BOTH NOTED TO BE WITHIN NORMAL RANGE. 11/29/18 14:12 Assessment: 11/29/18 14:10 WITHDRAWAL SYMPTOMS. Plan: CONTINUE DETOX. INCREASE DAILY PO FLUID INTAKE. PATIENT SCHEDULED FOR D/C TOMORROW.
[2018-11-29] MEDS: chlordiazePOXIDE HCL 10 MG CAPSULE PO SCH ×2 (17:53→23:20)
[2018-11-29] MEDS: LOPERAMIDE HCL 2 MG CAPSULE PO PRN (17:53)
[2018-11-29] MEDS: THIAMINE HCL 100 MG TABLET (FP) PO SCH (23:20)
[2018-11-30] MEDS: chlordiazePOXIDE HCL 10 MG CAPSULE PO SCH (05:54)
[2018-11-30 09:24] VITALS: BP 128/81; PULSE 91; TEMP 98.5
--- NOTE | 2018-11-30 13:45 | DS ---
[facility] Detox Discharge Summary Admission Date: 11/26/18 Discharge Date: 11/30/18 - History Present History: Alcohol Dependence, Cannabis Dependence Additional Comments: PATIENT RETURNING TO [facility] ([place], [place] WHERE HE WAS PREVIOUSLY A CLIENT, FOR AFTERCARE. PATIENT WAS DISCHARGED FROM DETOX UNIT IN STABLE MEDICAL CONDITION. Pertinent Past History: Asthma, History of Depression, Anxiety, HTN, Chronic Low Back Pain. - Physical Exam Results Vital Signs: Vital Signs Temperature 98.5 F 11/30/18 09:09 Pulse Rate 91 H 11/30/18 09:09 Respiratory Rate 18 11/30/18 09:09 Blood Pressure 128/81 11/30/18 09:09 O2 Sat by Pulse Oximetry (%) Pertinent Admission Physical Exam Findings: WITHDRAWAL SYMPTOMS. Laboratory Tests 11/26/18 11/27/18 11/27/18 13:30 05:40 05:40 WBC 11.1 H RBC 5.02 Hgb 15.6 Hct 45.3 MCV 90.2 MCH 31.1 MCHC 34.5 RDW 15.3 Plt Count 255 MPV 8.2 D Absolute Neuts (auto) Neutrophils % Lymphocytes % Monocytes % Eosinophils % Basophils % Nucleated RBC % Sodium 135 L Potassium 3.0 L Chloride 98 Carbon Dioxide 29 Anion Gap 8 BUN 9 Creatinine 1.1 Creat Clearance w eGFR > 60 Random Glucose 88 Calcium 9.1 Total Bilirubin 0.9 AST 65 H ALT 61 Alkaline Phosphatase 104 Total Protein 8.6 H Albumin 4.4 Urine Color Urine Appearance Urine pH Ur Specific [place] Urine Protein Urine Glucose (UA) Urine Ketones Urine Blood Urine Nitrite Urine Bilirubin Urine Urobilinogen Ur Leukocyte Esterase RPR Titer HIV 1&2 Antibody Screen Negative HIV P24 Antigen Negative 11/27/18 11/29/18 11/29/18 05:40 07:00 07:00 WBC RBC Hgb Hct MCV MCH MCHC RDW Plt Count MPV Absolute Neuts (auto) Neutrophils % Lymphocytes % Monocytes % Eosinophils % Basophils % Nucleated RBC % Sodium 141 Potassium 4.3 Chloride 107 Carbon Dioxide 28 Anion Gap 6 L BUN 9 Creatinine 0.7 Creat Clearance w eGFR > 60 Random Glucose 82 Calcium 8.6 Total Bilirubin AST ALT Alkaline Phosphatase Total Protein Albumin Urine Color Straw Urine Appearance Clear Urine pH 6.0 Ur Specific [place] 1.006 L Urine Protein Negative Urine Glucose (UA) Negative Urine Ketones Negative Urine Blood Negative Urine Nitrite Negative Urine Bilirubin Negative Urine Urobilinogen Negative Ur Leukocyte Esterase Negative RPR Titer Nonreactive HIV 1&2 Antibody Screen HIV P24 Antigen 11/29/18 07:00 WBC 5.6 RBC 4.56 Hgb 14.4 Hct 41.1 MCV 90.1 MCH 31.6 MCHC 35.0 RDW 15.6 Plt Count 230 MPV 7.6 Absolute Neuts (auto) 3.6 Neutrophils % 64.9 Lymphocytes % 20.8 Monocytes % 10.3 H Eosinophils % 3.2 Basophils % 0.8 Nucleated RBC % 0 Sodium Potassium Chloride Carbon Dioxide Anion Gap BUN Creatinine Creat Clearance w eGFR Random Glucose Calcium Total Bilirubin AST ALT Alkaline Phosphatase Total Protein Albumin Urine Color Urine Appearance Urine pH Ur Specific [place] Urine Protein Urine Glucose (UA) Urine Ketones Urine Blood Urine Nitrite Urine Bilirubin Urine Urobilinogen Ur Leukocyte Esterase RPR Titer HIV 1&2 Antibody Screen HIV P24 Antigen LABS NOTED. - Treatment Hospital Course: Detox Protocol Followed, Detoxed Safely, Responded well, Discharged Condition Good Patient has Accepted a Rehab Referral to: PT. RETURNING TO [facility] ([place]). - Medication Discharge Medications: Ambulatory Orders Albuterol Sulfate Inhaler - [Ventolin HFA Inhaler -] 2 inh IH Q4H PRN 11/28/15 - Diagnosis (1) Alcohol dependence with uncomplicated withdrawal Status: Acute (2) Anxiety and depression Status: Chronic (3) Asthma Status: Chronic Qualifiers: Asthma severity: mild Asthma persistence: intermittent Asthma complication type: uncomplicated Qualified Code(s): J45.20 - Mild intermittent asthma, uncomplicated (4) Cannabis abuse Status: Chronic (5) Nicotine abuse Status: Chronic (6) Chronic low back pain Status: Chronic Qualifiers: Back pain laterality: bilateral Sciatica presence: unspecified whether sciatica present Qualified Code(s): M54.5 - Low back pain; G89.29 - Other chronic pain - AMA Did Patient Leave Against Medical Advice: No
== END 2018-11-30 08:59 | disposition home or self-care (01) | DRG 775 ==
LOC: YASAS 11:19 → Y6N 13:26
PROVIDERS: ADMIT Neuromusculoskeletal Medicine & OMM; ATTEND Neuromusculoskeletal Medicine & OMM
PROC: HZ2ZZZZ Detoxification Services for Substance Abuse Treatment (ICD-10-PCS; principal; 2018-11-26)
DX: F10.230 Alcohol dependence with withdrawal, uncomplicated (principal); F12.10 Cannabis abuse, uncomplicated; Z72.0 Tobacco use; F41.8 Other specified anxiety disorders; F32.9 Major depressive disorder, single episode, unspecified; I10 Essential (primary) hypertension; J45.20 Mild intermittent asthma, uncomplicated; M54.5 Low back pain; G89.29 Other chronic pain; E87.6 Hypokalemia; D72.829 Elevated white blood cell count, unspecified
CPT/HCPCS: 36415; 80048; 80053; 81003; 85025; 85027; 86593; 87389; 90688; 93005; 93010; G0008

== ENCOUNTER 2019-04-08 12:53 | Inpatient (IN) | payer OTHER ==
[2019-04-08 16:48] VITALS: BMI 30.7
--- NOTE | 2019-04-08 18:01 | HP ---
CIWA Score Nausea/Vomitin Muscle Tremors: 4-Moderate,w/Arms Extend Anxiety: 4-Mod. Anxious/Guarded Agitation: 1-Slight > Activity Paroxysmal Sweats: 3 Orientation: 0-Oriented Tacttile Disturbances: 0-None Auditory Disturbances: 1-Very Mild Visual Disturbances: 0-None Headache: 4-Moderately Severe CIWA-Ar Total Score: 20 - Admission Criteria OASAS Guidelines: Admission for Medically Managed Detox: Requires at least one of the followin. CIWA greater than 12 2. Seizures within the past 24 hours 3. Delirium tremens within the past 24 hours 4. Hallucinations within the past 24 hours 5. Acute intervention needed for co occurring medical disorder 6. Acute intervention needed for co occurring psychiatric disorder 7. Severe withdrawal that cannot be handled at a lower level of care (continued vomiting, continued diarrhea, abnormal vital signs) requiring intravenous medication and/or fluids 8. Admission ROS S - HPI Allergies/Adverse Reactions: Allergies Allergy/AdvReac Type Severity Reaction Status Date / Time No Known Allergies Allergy Verified 04/08/19 16:40 History of Present Illness: pt here requesting detox from etoh use , reports 1 large bottle vodka /day since 3 weeks ago , relapsed while in outpt program , multiple detox admissions latest Nov 2018 at this facility. reports blackouts , + tremors , denies seizures , drinking " throughout the whole day " tobacco : denies PMHX: HTN, asthma, PTSD, depression and anxiety. Denies suicidal / homicidal ideation. Reports longest period of sobriety seven years while incarcerated, reports released from long term April 2018 and relapsed. Psych : suicide attempt " years ago " w/ cutting wrists, self - stabbing . Declines psychiatric referral whilst in facility . shx : lives alone. Exam Limitations: Clinical Condition, Intoxication - Ebola screening Have you traveled outside of the country in the last 21 days: No Have you had contact with anyone from an Ebola affected area: No - Review of Systems Constitutional: Loss of Appetite EENT: reports: See HPI Respiratory: reports: Other (" I don't know how to breathe beacuse I don't know what to do ") Cardiac: reports: Palpitations GI: reports: See HPI : reports: No Symptoms Reported Musculoskeletal: reports: No Symptoms Reported Integumentary: reports: No Symptoms Reported Neuro: reports: See HPI, Headache, Tremors, Unsteady Gait Endocrine: reports: No Symptoms Reported Psychiatric: reports: Orientated x3, Agitated, Anxious Patient History - Patient Medical History Hx Anemia: No Hx Asthma: Yes Hx Chronic Obstructive Pulmonary Disease (COPD): No Hx Cancer: No Hx Cardiac Disorders: No Hx Congestive Heart Failure: No Hx Hypertension: No Hx Hypercholesterolemia: No Hx Pacemaker: No HX Cerebrovascular Accident: No Hx Seizures: No Hx Dementia: No Hx Diabetes: No Hx Gastrointestinal Disorders: No Hx Liver Disease: No Hx Genitourinary Disorders: No Hx Sexually Transmitted Disorders: No Hx Renal Disease (ESRD): No Hx Thyroid Disease: No Hx Human Immunodeficiency Virus (HIV): No (LAST 07/23/15 NEGATIVE) Hx Hepatitis C: No Hx Depression: Yes Hx Suicide Attempt: Yes (cut left wrist in 2016) Hx Bipolar Disorder: No Hx Schizophrenia: No - Patient Surgical History Past Surgical History: No Hx Neurologic Surgery: No Hx Cataract Extraction: No Hx Cardiac Surgery: No Hx Lung Surgery: No Hx Breast Surgery: No Hx Breast Biopsy: No Hx Abdominal Surgery: No Hx Appendectomy: No Hx Cholecystectomy: No Hx Genitourinary Surgery: No Hx Section: No Hx Orthopedic Surgery: No Anesthesia Reaction: No - PPD History Date: 07/17/18 Results: 0 mm - Smoking Cessation Smoking history: Current some day smoker Have you smoked in the past 12 months: Yes Aproximately how many cigarettes per day: 1 Cigars Per Day: 0 Hx Chewing Tobacco Use: No Initiated information on smoking cessation: No - Substances abused Alcohol Substance route: Oral Frequency: Daily Amount used: 17 bottles of vodka Age of first use: 11 Date of last use: 04/08/19 Family Disease History - Family Disease History Family Disease History: Other: Father (d. 1991 hiv ), Mother (hiv 1986 , 62 ), Brother (A & W ), Son (2 , ages 21, 16 A & W ) Admission Physical Exam S - Vital Signs Vital Signs: Vital Signs - 24 hr 04/08/19 16:40 Temperature 99.1 F Pulse Rate 120 H Respiratory 20 Rate Blood Pressure 129/89 - Physical General Appearance: Yes: Disheveled, Moderate Distress, Alcohol on Breath, Intoxicated, Tremorous, Sweating, Anxious HEENTM: Yes: EOMI, Hearing grossly Normal, Normocephalic, Normal Voice Respiratory: Yes: Chest Non-Tender, Lungs Clear, Normal Breath Sounds Neck: Yes: No masses,lesions,Nodules, Trachea in good position Cardiology: Yes: Regular Rhythm, Regular Rate, S1, S2, Tachycardia Abdominal: Yes: Non Tender, Soft Musculoskeletal: Yes: Other (unsteady gait) Neurological: Yes: Fully Oriented, Alert, Motor Strength 5/5 Integumentary: Yes: Warm - Diagnostic (1) Alcohol dependence with uncomplicated intoxication Current Visit: Yes Status: Acute (2) Alcohol dependence with uncomplicated withdrawal Current Visit: Yes Status: Acute Breathalyzer - Breathalyzer Breathalyzer: 0.201 Urine Drug Screen - Test Device Lot number: [id number] Expiration date: 12/30/20 - Control Is test valid?: Yes - Results Drug screen NEGATIVE: Yes Inpatient Rehab Admission - Rehab Decision to Admit Inpatient rehab admission?: No
[2019-04-08] MEDS ORDERED: MAGNESIUM HYDROX 2400MG/30ML ORAL SUSPENSION 30 ML CUP PO PRN (18:08)
[2019-04-08] MEDS ORDERED: hydrOXYzine PAMOATE 25 MG CAPSULE (FP) PO PRN (18:08)
[2019-04-08] MEDS ORDERED: ACETAMINOPHEN 325 MG TABLET (FP) PO PRN ×2 (18:08)
[2019-04-08] MEDS ORDERED: IBUPROFEN 400 MG TABLET (FP) PO PRN (18:08)
[2019-04-08] MEDS ORDERED: METOPROLOL TARTRATE 25 MG TABLET (FP) PO ONE (18:08)
[2019-04-08] MEDS ORDERED: MAGNESIUM CITRATE 300 ML BOTTLE PO PRN (18:08)
[2019-04-08] MEDS ORDERED: MENTHOL/PHENOL 1 EACH UD MM PRN (18:08)
[2019-04-08] MEDS ORDERED: ONDANSETRON *ODT* 4 MG TABLET SL PRN (18:08)
[2019-04-08] MEDS ORDERED: ALBUTEROL SO4 0.083% IH SOL 2.5 MG/3 ML VIAL.NEB. NEB PRN (18:10)
[2019-04-08] MEDS ORDERED: chlordiazePOXIDE HCL 25 MG CAPSULE PO ONE (18:12)
[2019-04-08] MEDS: MAG HYDROX/AL HYDROX/SIMETH 30 ML UNIT-DOSE CUP PO PRN (19:34)
[2019-04-08] MEDS: THIAMINE HCL 100 MG TABLET (FP) PO SCH (22:02)
[2019-04-08] MEDS: MELATONIN 5 MG TABLETS PO PRN (22:02)
[2019-04-08] MEDS: chlordiazePOXIDE HCL 25 MG CAPSULE PO SCH (22:02)
[2019-04-08] MEDS: BISMUTH SUBSALICYLATE 524 MG/30 ML UD PO PRN (22:53)
[2019-04-09] MEDS: BISMUTH SUBSALICYLATE 524 MG/30 ML UD PO PRN ×2 (00:56→22:04)
[2019-04-09] MEDS: chlordiazePOXIDE HCL 25 MG CAPSULE PO PRN ×2 (01:56→14:00)
[2019-04-09] MEDS: chlordiazePOXIDE HCL 25 MG CAPSULE PO SCH ×4 (05:06→22:02)
--- NOTE | 2019-04-09 09:36 | PN ---
[facility] CIWA - CIWA Score Nausea/Vomitin-No Nausea/No Vomiting Muscle Tremors: 3 Anxiety: 2 Agitation: 2 Paroxysmal Sweats: 2 Orientation: 0-Oriented Tacttile Disturbances: 1-Very Mild Itch/Numbness Auditory Disturbances: 0-None Visual Disturbances: 0-None Headache: 2-Mild CIWA-Ar Total Score: 12 BHS Progress Note (SOAP) Subjective: c/o headache, sweats, shakes, anxiety, and irritability. Objective: 04/09/19 09:35 Vital Signs 04/09/19 04/09/19 04/09/19 02:00 02:30 03:00 Temperature Pulse Rate 100 H 100 H 102 H Respiratory 18 18 18 Rate Blood Pressure 04/09/19 04/09/19 04/09/19 03:30 04:00 04:30 Temperature Pulse Rate 102 H 91 H 96 H Respiratory 18 18 18 Rate Blood Pressure 04/09/19 04/09/19 04/09/19 05:00 05:30 06:00 Temperature Pulse Rate 97 H 100 H 103 H Respiratory 18 18 18 Rate Blood Pressure 04/09/19 04/09/19 04/09/19 06:04 06:30 07:00 Temperature 99.2 F Pulse Rate 103 H 101 H 100 H Respiratory 18 18 18 Rate Blood Pressure 132/82 04/09/19 04/09/19 04/09/19 07:30 08:00 09:15 Temperature 98.5 F Pulse Rate 98 H 91 H 110 H Respiratory 18 18 18 Rate Blood Pressure 142/98 Labs pending. Assessment: 04/09/19 09:35 AOX3, in no respiratory distress, full rom, ambulating in the unit. Withdrawal symptoms. Plan: continue detox increase fluids
[2019-04-09] MEDS: PRENATAL VITAMINS W/ FOLIC ACID TABLET (FP) PO SCH (10:16)
[2019-04-09 11:05] LABS: ALBUMIN 3.6 g/dl (3.4-5.0); BILIRUBIN,TOTAL 0.8 mg/dL (0.2-1); BLOOD UREA NITROGEN 4.7 mg/dL (7-18); CALCIUM 8.3 mg/dL (8.5-10.1); CREATININE 0.9 mg/dL (0.55-1.3); TOT PROT 7.2 g/dl (6.4-8.2)
[2019-04-09 11:48] LABS: HEMATOCRIT 40.4 % (35.4-49); HEMOGLOBIN 13.9 GM/dL (11.7-16.9); MCH 30.3 pg (25.7-33.7); MCHC 34.5 g/dl (32.0-35.9); MEAN CELL VOLUME 87.8 fl (80-96); MEAN PLT VOLUME 7.9 fl (7.5-11.1); RDW 13.8 % (11.9-15.9); WHITE BLOOD COUNT 9.3 K/mm3 (4.0-10.0)
[2019-04-09 13:13] LABS: POTASSIUM 2.7 mmol/L (3.5-5.1)
[2019-04-09] MEDS ORDERED: POTASSIUM CHLORIDE TABS 20 MEQ TABLET.ER (FP) PO ONE ×2 (14:00→18:00)
--- NOTE | 2019-04-09 14:01 | PN ---
S Progress Note Note: K+ level is 2.7, potassium chloride 40meq po [id number] 4hrs apart. Potassium level to be repeated 04/10/19.
[2019-04-09 17:52] LABS: PLATELET COUNT 186 K/MM3 (134-434)
[2019-04-09] MEDS: MELATONIN 5 MG TABLETS PO PRN (22:02)
[2019-04-09] MEDS: THIAMINE HCL 100 MG TABLET (FP) PO SCH (22:02)
[2019-04-10] MEDS: MAG HYDROX/AL HYDROX/SIMETH 30 ML UNIT-DOSE CUP PO PRN (03:57)
[2019-04-10] MEDS: chlordiazePOXIDE HCL 25 MG CAPSULE PO SCH ×3 (05:26→17:11)
[2019-04-10] MEDS ORDERED: RANITIDINE HCL 150 MG TABLET (FP) PO SCH (10:00)
--- NOTE | 2019-04-10 10:07 | PN ---
[facility] CIWA - CIWA Score Nausea/Vomitin-Mild Nausea/No Vomiting Muscle Tremors: 2 Anxiety: 3 Agitation: 2 Paroxysmal Sweats: 1-Minimal Palms Moist Orientation: 0-Oriented Tacttile Disturbances: 1-Very Mild Itch/Numbness Auditory Disturbances: 0-None Visual Disturbances: 0-None Headache: 0-None Present CIWA-Ar Total Score: 10 BHS Progress Note (SOAP) Subjective: tremor long history of GERD treated with naxium patient agrees to take zantac bid for GERD Objective: 04/10/19 10:03 Vital Signs Temperature 98.3 F 04/10/19 09:08 Pulse Rate 115 H 04/10/19 09:08 Respiratory Rate 18 04/10/19 09:08 Blood Pressure 131/99 04/10/19 09:08 O2 Sat by Pulse Oximetry (%) Laboratory Last Values WBC 9.3 K/mm3 (4.0-10.0) 04/09/19 08:00 RBC 4.60 M/mm3 (4.00-5.60) 04/09/19 08:00 Hgb 13.9 GM/dL (11.7-16.9) 04/09/19 08:00 Hct 40.4 % (35.4-49) 04/09/19 08:00 MCV 87.8 fl (80-96) 04/09/19 08:00 MCH 30.3 pg (25.7-33.7) 04/09/19 08:00 MCHC 34.5 g/dl (32.0-35.9) 04/09/19 08:00 RDW 13.8 % (11.9-15.9) D 04/09/19 08:00 Plt Count 186 K/MM3 (134-434) 04/09/19 08:00 MPV 7.9 fl (7.5-11.1) 04/09/19 08:00 Sodium 132 mmol/L (136-145) L 04/09/19 08:00 Potassium 2.7 mmol/L (3.5-5.1) L* 04/09/19 08:00 Chloride 91 mmol/L (98-107) L 04/09/19 08:00 Carbon Dioxide 31 mmol/L (21-32) 04/09/19 08:00 Anion Gap 11 MMOL/L (8-16) 04/09/19 08:00 BUN 4.7 mg/dL (7-18) L 04/09/19 08:00 Creatinine 0.9 mg/dL (0.55-1.3) 04/09/19 08:00 Est GFR (CKD-EPI)AfAm 124.26 04/09/19 08:00 Est GFR (CKD-EPI)NonAf 107.21 04/09/19 08:00 Random Glucose 94 mg/dL (74-106) 04/09/19 08:00 Calcium 8.3 mg/dL (8.5-10.1) L 04/09/19 08:00 Total Bilirubin 0.8 mg/dL (0.2-1) 04/09/19 08:00 AST 172 U/L (15-37) H 04/09/19 08:00 ALT 93 U/L (13-61) H 04/09/19 08:00 Alkaline Phosphatase 144 U/L (45-117) H 04/09/19 08:00 Total Protein 7.2 g/dl (6.4-8.2) 04/09/19 08:00 Albumin 3.6 g/dl (3.4-5.0) 04/09/19 08:00 RPR Titer Nonreactive (NONREACTIVE) 04/09/19 08:00 lab noted low K+ treated with K+ supplement repeat K+ 04/10/19 repeat ast 04/11/19 preferring librium and waiting for repeat ast 04/10/19 10:07 Assessment: 04/10/19 10:06 alcohol withdrawal sx Plan: continue alcohol detox
[2019-04-10] MEDS: PRENATAL VITAMINS W/ FOLIC ACID TABLET (FP) PO SCH (10:43)
[2019-04-10] MEDS ORDERED: POTASSIUM CHLORIDE ORAL LIQUID 20 MEQ/15 ML PO SCH (17:00)
[2019-04-10 17:30] VITALS: BP 119/82; PULSE 102; TEMP 97.4
--- NOTE | 2019-04-10 19:34 | PN ---
[facility] Progress Note Note: patient did not want to complete treatment.all attempts to convince patient to stay with no avail,high risk of relapsing explained and understood, signed release dany ortiz to go to [facility] or call 911 if not feeling well,k dur 20 mg po daily for 5 days,sent to [facility]
--- NOTE | 2019-04-10 19:38 | DS ---
[facility] Detox Discharge Summary Admission Date: 04/08/19 Discharge Date: 04/10/19 - History Present History: Alcohol Dependence Additional Comments: patient signed release ama,k dur 20 meq po daily for 5 days,[facility]buterol inhal[facility] Pertinent Past History: gerd asthma - Physical Exam Results Vital Signs: Vital Signs Temperature 97.4 F L 04/10/19 17:30 Pulse Rate 102 H 04/10/19 17:30 Respiratory Rate 18 04/10/19 17:30 Blood Pressure 119/82 04/10/19 17:30 O2 Sat by Pulse Oximetry (%) Pertinent Admission Physical Exam Findings: withdrawal signs and symptom Vital Signs Temperature 97.4 F L 04/10/19 17:30 Pulse Rate 102 H 04/10/19 17:30 Respiratory Rate 18 04/10/19 17:30 Blood Pressure 119/82 04/10/19 17:30 O2 Sat by Pulse Oximetry (%) Laboratory Last Values WBC 9.3 K/mm3 (4.0-10.0) 04/09/19 08:00 RBC 4.60 M/mm3 (4.00-5.60) 04/09/19 08:00 Hgb 13.9 GM/dL (11.7-16.9) 04/09/19 08:00 Hct 40.4 % (35.4-49) 04/09/19 08:00 MCV 87.8 fl (80-96) 04/09/19 08:00 MCH 30.3 pg (25.7-33.7) 04/09/19 08:00 MCHC 34.5 g/dl (32.0-35.9) 04/09/19 08:00 RDW 13.8 % (11.9-15.9) D 04/09/19 08:00 Plt Count 186 K/MM3 (134-434) 04/09/19 08:00 MPV 7.9 fl (7.5-11.1) 04/09/19 08:00 Sodium 132 mmol/L (136-145) L 04/09/19 08:00 Potassium 3.2 mmol/L (3.5-5.1) L 04/10/19 07:38 Chloride 91 mmol/L (98-107) L 04/09/19 08:00 Carbon Dioxide 31 mmol/L (21-32) 04/09/19 08:00 Anion Gap 11 MMOL/L (8-16) 04/09/19 08:00 BUN 4.7 mg/dL (7-18) L 04/09/19 08:00 Creatinine 0.9 mg/dL (0.55-1.3) 04/09/19 08:00 Est GFR (CKD-EPI)AfAm 124.26 04/09/19 08:00 Est GFR (CKD-EPI)NonAf 107.21 04/09/19 08:00 Random Glucose 94 mg/dL (74-106) 04/09/19 08:00 Calcium 8.3 mg/dL (8.5-10.1) L 04/09/19 08:00 Total Bilirubin 0.8 mg/dL (0.2-1) 04/09/19 08:00 AST 172 U/L (15-37) H 04/09/19 08:00 ALT 93 U/L (13-61) H 04/09/19 08:00 Alkaline Phosphatase 144 U/L (45-117) H 04/09/19 08:00 Total Protein 7.2 g/dl (6.4-8.2) 04/09/19 08:00 Albumin 3.6 g/dl (3.4-5.0) 04/09/19 08:00 RPR Titer Nonreactive (NONREACTIVE) 04/09/19 08:00 HIV 1&2 Antibody Screen Negative 04/10/19 05:55 HIV P24 Antigen Negative 04/10/19 05:55 hypokalemia on k replacement - Medication Discharge Medications: Ambulatory Orders Albuterol Sulfate Inhaler - [Ventolin HFA Inhaler -] 2 inh IH Q4H PRN 11/28/15 Cetirizine HCl 10 mg PO DAILY 04/08/19 - AMA Did Patient Leave Against Medical Advice: Yes
[2019-04-10] MEDS ORDERED: chlordiazePOXIDE HCL 10 MG CAPSULE PO PRN (23:00)
[2019-04-10] MEDS ORDERED: chlordiazePOXIDE HCL 10 MG CAPSULE PO SCH (23:00)
[2019-04-11] MEDS ORDERED: POTASSIUM CHLORIDE TABS 20 MEQ TABLET.ER (FP) PO SCH (10:00)
[2019-04-11] MEDS ORDERED: chlordiazePOXIDE HCL 10 MG CAPSULE PO SCH (23:00)
== END 2019-04-10 19:45 | disposition left against medical advice (07) | DRG 770 ==
LOC: YASAS 12:53 → Y3N 18:30
PROVIDERS: ADMIT Surgery; ATTEND Surgery
PROC: HZ2ZZZZ Detoxification Services for Substance Abuse Treatment (ICD-10-PCS; principal; 2019-04-08)
DX: F10.230 Alcohol dependence with withdrawal, uncomplicated (principal); F10.220 Alcohol dependence with intoxication, uncomplicated; Z72.0 Tobacco use; E87.6 Hypokalemia; K21.9 Gastro-esophageal reflux disease without esophagitis; J45.909 Unspecified asthma, uncomplicated; Z86.59 Personal history of other mental and behavioral disorders; Z91.5 Personal history of self-harm
CPT/HCPCS: 36415; 80053; 84132; 85027; 86593; 87389

== ENCOUNTER 2019-09-13 10:11 | Inpatient (IN) | payer OTHER ==
[2019-09-13 10:53] VITALS: BMI 33.1
--- NOTE | 2019-09-13 11:56 | HP ---
CIWA Score Nausea/Vomitin-Int. Nausea w/Dry Heave Muscle Tremors: 4-Moderate,w/Arms Extend Anxiety: 3 Agitation: 3 Paroxysmal Sweats: 3 Orientation: 2-Disoriented Date<2 days Tacttile Disturbances: 1-Very Mild Itch/Numbness Auditory Disturbances: 2-Mild Harshness/Frighten Visual Disturbances: 4-Moderate Hallucinations Headache: 0-None Present CIWA-Ar Total Score: 26 - Admission Criteria OASAS Guidelines: Admission for Medically Managed Detox: Requires at least one of the followin. CIWA greater than 12 2. Seizures within the past 24 hours 3. Delirium tremens within the past 24 hours 4. Hallucinations within the past 24 hours 5. Acute intervention needed for co occurring medical disorder 6. Acute intervention needed for co occurring psychiatric disorder 7. Severe withdrawal that cannot be handled at a lower level of care (continued vomiting, continued diarrhea, abnormal vital signs) requiring intravenous medication and/or fluids 8. Admitting History and Physical - Smoking History Smoking history: Current some day smoker Have you smoked in the past 12 months: Yes Aproximately how many cigarettes per day: 1 - Alcohol/Substance Use Hx Alcohol Use: Yes Admission ROS [facility] Allergies/Adverse Reactions: Allergies Allergy/AdvReac Type Severity Reaction Status Date / Time No Known Allergies Allergy Verified 09/13/19 10:40 History of Present Illness: pt here requesting detox from etoh use , reports 1 liter vodka /day since April 2019 , multiple detox admissions latest Nov 2018 at this facility [facility] , latest use this morning . reports blackouts , + tremors , denies seizures. tobacco : denies PMHX: HTN, asthma, PTSD, depression and anxiety. Denies suicidal / homicidal ideation. Reports longest period of sobriety seven years while incarcerated, reports released from long term April 2018 and relapsed. Psych : suicide attempt " years ago " w/ cutting wrists, self - stabbing . Declines psychiatric referral whilst in facility . shx : lives alone. Exam Limitations: Clinical Condition, Intoxication - Ebola screening Have you traveled outside of the country in the last 21 days: No Have you had contact with anyone from an Ebola affected area: No Do you have a fever: No - Review of Systems Constitutional: Loss of Appetite EENT: reports: No Symptoms Reported Respiratory: reports: SOB with Exertion (asthma) Cardiac: reports: No Symptoms Reported GI: reports: See HPI : reports: No Symptoms Reported Musculoskeletal: reports: No Symptoms Reported Integumentary: reports: No Symptoms Reported Neuro: reports: See HPI Endocrine: reports: No Symptoms Reported Psychiatric: reports: Agitated, Anxious, Disorientated Patient History - Patient Medical History Hx Anemia: No Hx Asthma: Yes Hx Chronic Obstructive Pulmonary Disease (COPD): No Hx Cancer: No Hx Cardiac Disorders: No Hx Congestive Heart Failure: No Hx Hypertension: No Hx Hypercholesterolemia: No Hx Pacemaker: No HX Cerebrovascular Accident: No Hx Seizures: No Hx Dementia: No Hx Diabetes: No Hx Gastrointestinal Disorders: No Hx Liver Disease: No Hx Genitourinary Disorders: No Hx Sexually Transmitted Disorders: No Hx Renal Disease (ESRD): No Hx Thyroid Disease: No Hx Human Immunodeficiency Virus (HIV): No (LAST 07/23/15 NEGATIVE) Hx Hepatitis C: No Hx Depression: Yes Hx Suicide Attempt: Yes (cut left wrist in 2016) Hx Bipolar Disorder: No Hx Schizophrenia: No - Patient Surgical History Past Surgical History: No Hx Neurologic Surgery: No Hx Cataract Extraction: No Hx Cardiac Surgery: No Hx Lung Surgery: No Hx Breast Surgery: No Hx Breast Biopsy: No Hx Abdominal Surgery: No Hx Appendectomy: No Hx Cholecystectomy: No Hx Genitourinary Surgery: No Hx Section: No Hx Orthopedic Surgery: No Anesthesia Reaction: No - PPD History Date: 07/17/18 Results: 0 mm - Smoking Cessation Smoking history: Current some day smoker Have you smoked in the past 12 months: Yes Aproximately how many cigarettes per day: 1 Cigars Per Day: 0 Hx Chewing Tobacco Use: No Initiated information on smoking cessation: Yes 'Breaking Loose' booklet given: 09/13/19 - Substances abused Alcohol Substance route: Oral Frequency: Daily Amount used: 1L of vodka Age of first use: 10 Date of last use: 09/13/19 Marijuana/Hashish Substance route: Smoking Frequency: 1-3 times last 30 days Amount used: $10-30 Age of first use: 12 Date of last use: 09/09/19 Admission Physical Exam [facility] - Vital Signs Vital Signs: Vital Signs - 24 hr 09/13/19 09/13/19 10:29 11:08 Temperature 97.3 F L 97.3 F L Pulse Rate 104 H 104 H Respiratory 18 18 Rate Blood Pressure 153/105 H 153/105 H - Physical General Appearance: Yes: Moderate Distress, Intoxicated, Tremorous, Anxious HEENTM: Yes: EOMI, Hearing grossly Normal, Normocephalic, Normal Voice Respiratory: Yes: Chest Non-Tender, Lungs Clear, Normal Breath Sounds, No Respiratory Distress, No Accessory Muscle Use Neck: Yes: No masses,lesions,Nodules, Trachea in good position Cardiology: Yes: Regular Rhythm, Regular Rate, S1, S2, Tachycardia Abdominal: Yes: Non Tender, Soft Musculoskeletal: Yes: Gait Steady Extremities: Yes: Normal Range of Motion, Non-Tender, Tremors Neurological: Yes: Alert, Motor Strength 5/5, Disoriented Integumentary: Yes: Warm - Diagnostic (1) Alcohol dependence with uncomplicated intoxication Current Visit: Yes Status: Chronic (2) Cannabis abuse Current Visit: Yes Status: Chronic Breathalyzer - Breathalyzer Breathalyzer: 0.010 Urine Drug Screen - Test Device Lot number: [id number] Expiration date: 06/01/21 - Control Is test valid?: Yes - Results Drug screen NEGATIVE: No Urine drug screen results: THC-Marijuana Inpatient Rehab Admission - Rehab Decision to Admit Inpatient rehab admission?: No
[2019-09-13] MEDS ORDERED: ALBUTEROL SO4 0.083% IH SOL 2.5 MG/3 ML VIAL.NEB. NEB PRN (12:07)
[2019-09-13] MEDS ORDERED: ALBUTEROL SO4 8 GM HFA INHALER IH PRN (12:07)
[2019-09-13] MEDS ORDERED: MAGNESIUM HYDROX 2400MG/30ML ORAL SUSPENSION 30 ML CUP PO PRN (12:08)
[2019-09-13] MEDS ORDERED: IBUPROFEN 400 MG TABLET (FP) PO PRN (12:08)
[2019-09-13] MEDS ORDERED: ACETAMINOPHEN 325 MG TABLET (FP) PO PRN ×2 (12:08)
[2019-09-13] MEDS ORDERED: BISMUTH SUBSALICYLATE 262 MG/15 ML BTL PO PRN (12:08)
[2019-09-13] MEDS ORDERED: MENTHOL/PHENOL 1 EACH UD MM PRN (12:08)
[2019-09-13] MEDS ORDERED: MAGNESIUM CITRATE 300 ML BOTTLE PO PRN (12:08)
[2019-09-13] MEDS ORDERED: MAG HYDROX/AL HYDROX/SIMETH 30 ML UNIT-DOSE CUP PO PRN (12:08)
[2019-09-13] MEDS ORDERED: ONDANSETRON *ODT* 4 MG TABLET SL PRN (12:08)
[2019-09-13] MEDS ORDERED: MELATONIN 5 MG TABLETS PO PRN (12:08)
[2019-09-13] MEDS ORDERED: hydrOXYzine PAMOATE 25 MG CAPSULE (FP) PO PRN (12:08)
[2019-09-13] MEDS ORDERED: chlordiazePOXIDE HCL 25 MG CAPSULE PO PRN (12:10)
[2019-09-13] MEDS ORDERED: chlordiazePOXIDE HCL 25 MG CAPSULE PO ONE (12:44)
[2019-09-13] MEDS ORDERED: METOPROLOL TARTRATE 25 MG TABLET (FP) PO ONE (12:45)
[2019-09-13] MEDS: chlordiazePOXIDE HCL 25 MG CAPSULE PO SCH ×2 (16:56→22:07)
[2019-09-13] MEDS ORDERED: THIAMINE HCL 100 MG TABLET (FP) PO SCH (22:00)
[2019-09-14] MEDS: chlordiazePOXIDE HCL 25 MG CAPSULE PO SCH ×2 (05:11→10:08)
[2019-09-14 06:14] VITALS: PULSE 92
[2019-09-14 09:49] LABS: HEMOGLOBIN 15.2 GM/dL (11.7-16.9); MCH 31.9 pg (25.7-33.7); MCHC 34.6 g/dl (32.0-35.9); MEAN CELL VOLUME 92.2 fl (80-96); MEAN PLT VOLUME 7.8 fl (7.5-11.1); PLATELET COUNT 273 K/MM3 (134-434); RBC 4.77 M/mm3 (4.00-5.60); RDW 13.2 % (11.9-15.9); WHITE BLOOD COUNT 8.3 K/mm3 (4.0-10.0)
[2019-09-14] MEDS ORDERED: PRENATAL VITAMINS W/ FOLIC ACID TABLET (FP) PO SCH (10:00)
[2019-09-14 10:26] LABS: ALBUMIN 3.9 g/dl (3.4-5.0); BILIRUBIN,TOTAL 1.3 mg/dL (0.2-1); BLOOD UREA NITROGEN 11.8 mg/dL (7-18); CALCIUM 8.9 mg/dL (8.5-10.1); CREATININE 0.8 mg/dL (0.55-1.3); POTASSIUM 3.3 mmol/L (3.5-5.1); TOT PROT 7.6 g/dl (6.4-8.2)
[2019-09-14] MEDS ORDERED: FLU VACCINE QUAD 60 MCG/0.5 ML (MDV 19-20) IM ONE (12:00)
--- NOTE | 2019-09-14 12:33 | PN ---
S CIWA - CIWA Score Nausea/Vomitin-Mild Nausea/No Vomiting Muscle Tremors: 4-Moderate,w/Arms Extend Anxiety: 4-Mod. Anxious/Guarded Agitation: 3 Paroxysmal Sweats: 3 Orientation: 2-Disoriented Date<2 days (date of week day of month) Tacttile Disturbances: 1-Very Mild Itch/Numbness Auditory Disturbances: 1-Very Mild Visual Disturbances: 0-None Headache: 2-Mild CIWA-Ar Total Score: 21 BHS Progress Note (SOAP) Subjective: 39 years old male admitted on 09/13/19 for alcohol withdrawal sx management treated with librium detox regimen sweating tremor feeling tired resting on bed prefers to stay in the bed Objective: 09/14/19 12:33 Vital Signs Temperature 96.9 F L 09/14/19 09:03 Pulse Rate 92 H 09/14/19 09:03 Respiratory Rate 18 09/14/19 09:03 Blood Pressure 126/92 09/14/19 09:03 O2 Sat by Pulse Oximetry (%) Laboratory Last Values WBC 8.3 K/mm3 (4.0-10.0) 09/14/19 07:10 RBC 4.77 M/mm3 (4.00-5.60) 09/14/19 07:10 Hgb 15.2 GM/dL (11.7-16.9) 09/14/19 07:10 Hct 44.0 % (35.4-49) 09/14/19 07:10 MCV 92.2 fl (80-96) 09/14/19 07:10 MCH 31.9 pg (25.7-33.7) 09/14/19 07:10 MCHC 34.6 g/dl (32.0-35.9) 09/14/19 07:10 RDW 13.2 % (11.9-15.9) 09/14/19 07:10 Plt Count 273 K/MM3 (134-434) D 09/14/19 07:10 MPV 7.8 fl (7.5-11.1) 09/14/19 07:10 Sodium 136 mmol/L (136-145) 09/14/19 07:10 Potassium 3.3 mmol/L (3.5-5.1) L 09/14/19 07:10 Chloride 102 mmol/L (98-107) 09/14/19 07:10 Carbon Dioxide 27 mmol/L (21-32) 09/14/19 07:10 Anion Gap 7 MMOL/L (8-16) L 09/14/19 07:10 BUN 11.8 mg/dL (7-18) 09/14/19 07:10 Creatinine 0.8 mg/dL (0.55-1.3) 09/14/19 07:10 Est GFR (CKD-EPI)AfAm 129.51 09/14/19 07:10 Est GFR (CKD-EPI)NonAf 111.74 09/14/19 07:10 Random Glucose 89 mg/dL (74-106) 09/14/19 07:10 Calcium 8.9 mg/dL (8.5-10.1) 09/14/19 07:10 Total Bilirubin 1.3 mg/dL (0.2-1) H 09/14/19 07:10 AST 58 U/L (15-37) H 09/14/19 07:10 ALT 46 U/L (13-61) 09/14/19 07:10 Alkaline Phosphatase 105 U/L (45-117) 09/14/19 07:10 Total Protein 7.6 g/dl (6.4-8.2) 09/14/19 07:10 Albumin 3.9 g/dl (3.4-5.0) 09/14/19 07:10 RPR Titer Nonreactive (NONREACTIVE) 09/14/19 07:10 HIV 1&2 Antibody Screen Negative 09/14/19 07:10 HIV P24 Antigen Negative 09/14/19 07:10 lab noted Assessment: 09/14/19 12:33 alcohol withdrawal sx Plan: continue librium detox regimen
[2019-09-14 13:54] VITALS: BP 112/76; TEMP 98.3
--- NOTE | 2019-09-14 16:00 | DS ---
[facility] Detox Discharge Summary Admission Date: 09/13/19 Discharge Date: 09/14/19 - History Present History: Alcohol Dependence Additional Comments: 39 years old male admitted on 09/13/19 for alcohol withdrawal sx management treated with librium detox regimen insists to leave the detox unit without apparent reason patient is alert oriented x 3 speech clearly coherently steady gait refuses ciwa refuse discharge physical examination - Physical Exam Results Vital Signs: Vital Signs Temperature 98.3 F 09/14/19 13:53 Pulse Rate 92 H 09/14/19 13:53 Respiratory Rate 18 09/14/19 13:53 Blood Pressure 112/76 09/14/19 13:53 O2 Sat by Pulse Oximetry (%) Pertinent Admission Physical Exam Findings: alcohol withdrawal sx Laboratory Last Values WBC 8.3 K/mm3 (4.0-10.0) 09/14/19 07:10 RBC 4.77 M/mm3 (4.00-5.60) 09/14/19 07:10 Hgb 15.2 GM/dL (11.7-16.9) 09/14/19 07:10 Hct 44.0 % (35.4-49) 09/14/19 07:10 MCV 92.2 fl (80-96) 09/14/19 07:10 MCH 31.9 pg (25.7-33.7) 09/14/19 07:10 MCHC 34.6 g/dl (32.0-35.9) 09/14/19 07:10 RDW 13.2 % (11.9-15.9) 09/14/19 07:10 Plt Count 273 K/MM3 (134-434) D 09/14/19 07:10 MPV 7.8 fl (7.5-11.1) 09/14/19 07:10 Sodium 136 mmol/L (136-145) 09/14/19 07:10 Potassium 3.3 mmol/L (3.5-5.1) L 09/14/19 07:10 Chloride 102 mmol/L (98-107) 09/14/19 07:10 Carbon Dioxide 27 mmol/L (21-32) 09/14/19 07:10 Anion Gap 7 MMOL/L (8-16) L 09/14/19 07:10 BUN 11.8 mg/dL (7-18) 09/14/19 07:10 Creatinine 0.8 mg/dL (0.55-1.3) 09/14/19 07:10 Est GFR (CKD-EPI)AfAm 129.51 09/14/19 07:10 Est GFR (CKD-EPI)NonAf 111.74 09/14/19 07:10 Random Glucose 89 mg/dL (74-106) 09/14/19 07:10 Calcium 8.9 mg/dL (8.5-10.1) 09/14/19 07:10 Total Bilirubin 1.3 mg/dL (0.2-1) H 09/14/19 07:10 AST 58 U/L (15-37) H 09/14/19 07:10 ALT 46 U/L (13-61) 09/14/19 07:10 Alkaline Phosphatase 105 U/L (45-117) 09/14/19 07:10 Total Protein 7.6 g/dl (6.4-8.2) 09/14/19 07:10 Albumin 3.9 g/dl (3.4-5.0) 09/14/19 07:10 RPR Titer Nonreactive (NONREACTIVE) 09/14/19 07:10 HIV 1&2 Antibody Screen Negative 09/14/19 07:10 HIV P24 Antigen Negative 09/14/19 07:10 lab noted low K+ K+ rich food - Treatment Hospital Course: Detox Protocol Followed, Responded well Patient has Accepted a Rehab Referral to: community support approach - Medication Discharge Medications: Ambulatory Orders Albuterol Sulfate Inhaler - [Ventolin HFA Inhaler -] 2 inh IH Q4H PRN #1 inhaler 04/10/19 - Diagnosis (1) Alcohol dependence with uncomplicated intoxication Current Visit: Yes Status: Acute (2) Hypokalemia Current Visit: Yes Status: Chronic (3) Asthma Current Visit: Yes Status: Chronic Qualifiers: Asthma severity: mild Asthma persistence: intermittent Asthma complication type: uncomplicated Qualified Code(s): J45.20 - Mild intermittent asthma, uncomplicated (4) HTN (hypertension) Current Visit: Yes Status: Chronic Qualifiers: Hypertension type: essential hypertension Qualified Code(s): I10 - Essential (primary) hypertension (5) Nicotine dependence Current Visit: Yes Status: Acute Qualifiers: Nicotine product type: cigarettes Substance use status: in withdrawal Qualified Code(s): F17.213 - Nicotine dependence, cigarettes, with withdrawal - AMA Did Patient Leave Against Medical Advice: Yes
[2019-09-15] MEDS ORDERED: chlordiazePOXIDE HCL 25 MG CAPSULE PO SCH (05:00)
[2019-09-16] MEDS ORDERED: chlordiazePOXIDE HCL 10 MG CAPSULE PO PRN
[2019-09-16] MEDS ORDERED: chlordiazePOXIDE HCL 10 MG CAPSULE PO SCH (05:00)
[2019-09-17] MEDS ORDERED: chlordiazePOXIDE HCL 10 MG CAPSULE PO SCH (05:00)
[2019-09-18] MEDS ORDERED: chlordiazePOXIDE HCL 10 MG CAPSULE PO ONE (05:00)
== END 2019-09-14 17:00 | disposition left against medical advice (07) | DRG 770 ==
LOC: YASAS 10:11 → Y3N 12:17
PROVIDERS: ADMIT Allergy & Immunology; ATTEND Allergy & Immunology
PROC: HZ2ZZZZ Detoxification Services for Substance Abuse Treatment (ICD-10-PCS; principal; 2019-09-13)
DX: F10.230 Alcohol dependence with withdrawal, uncomplicated (principal); F12.10 Cannabis abuse, uncomplicated; F17.213 Nicotine dependence, cigarettes, with withdrawal; I10 Essential (primary) hypertension; E87.6 Hypokalemia; J45.20 Mild intermittent asthma, uncomplicated; Z91.5 Personal history of self-harm
CPT/HCPCS: 36415; 80053; 85027; 86593; 87389; Q2036

== ENCOUNTER 2019-12-09 11:49 | Emergency (ER) | payer OTHER ==
[2019-12-09 12:12] VITALS: BMI 34.6
[2019-12-09 13:57] LABS: VENOUS PH 7.39 (7.31-7.41)
[2019-12-09 13:58] LABS: VENOUS PO2 < 49 mmHg (28-48)
--- NOTE | 2019-12-09 14:00 | PDOC ---
History of Present Illness - General Chief Complaint: Alcohol intoxication Stated Complaint: HIGH DIONY Time Seen by Provider: 12/09/19 12:38 History Source: Patient Exam Limitations: Clinical Condition - History of Present Illness Initial Comments: 12/09/19 13:56 Patient with past medical history of alcohol abuse being seen in [facility] rehab center for evaluations due to patient ingesting rubbing alcohol this morning. Patient reportedly drank small amounts of rubbing alcohol which he mixed with water which he quantified to about 10 very small amount. Patient reported drinking vodka daily and being seen in [facility] for rehab and detox. Denies chest pain, palpitation, shortness of breath, dizziness, abdominal pains , nausea vomiting. Denies any other symptoms Is this a multiple visit Asthma Patient?: No Timing/Duration: 4-6 hours Past History - Past Medical History Allergies/Adverse Reactions: Allergies Allergy/AdvReac Type Severity Reaction Status Date / Time No Known Allergies Allergy Verified 12/09/19 12:12 Home Medications: Ambulatory Orders Albuterol Sulfate Inhaler - [Ventolin HFA Inhaler -] 2 inh IH Q4H PRN #1 inhaler 04/10/19 Anemia: No Asthma: Yes Cancer: No Cardiac Disorders: No CVA: No COPD: No CHF: No Dementia: No Diabetes: No GI Disorders: No Disorders: No HTN: No Hypercholesterolemia: No Kidney Stones: No Liver Disease: No Seizures: No Thyroid Disease: No - Surgical History Abdominal Surgery: No Appendectomy: No Cardiac Surgery: No Cholecystectomy: No Lung Surgery: No Neurologic Surgery: No Orthopedic Surgery: No - Reproductive History Testicular Surgery: No - Psycho Social/Smoking Cessation Hx Smoking History: Current every day smoker Have you smoked in the past 12 months: Yes Number of Cigarettes Smoked Daily: 1 Cigars Per Day: 0 Information on smoking cessation initiated: No 'Breaking Loose' booklet given: 09/13/19 Hx Alcohol Use: No Drug/Substance Use Hx: Yes (marijuana) Substance Use Type: Alcohol, Marijuana Hx Substance Use Treatment: Yes ([facility]) Review of Systems - Review of Systems Able to Perform ROS?: Yes Is the patient limited Wallisian proficient: No Constitutional: No: Chills, Fever, Malaise HEENTM: No: Symptoms Reported, See HPI, Eye Pain, Blurred Vision, Tearing, Recent change in vision, Double Vision, Cataracts, Ear Pain, Ocular Prothesis, Ear Discharge, Nose Pain, Nose Congestion, Tinnitus, Nose Bleeding, Hearing Loss , Throat Pain, Throat Swelling, Mouth Pain, Dental Problems, Difficulty Swallowing, Mouth Swelling, Other Respiratory: No: Symptoms reported, See HPI, Cough, Orthopnea, Shortness of Breath, SOB with Exertion, SOB at Rest, Stridor, Wheezing, Productive cough, Hemoptysis, Other Cardiac (ROS): No: Symptoms Reported, See HPI, Chest Pain, Edema, Irregular Heart Rate, Lightheadedness, Palpitations, Syncope, Chest Tightness, Other ABD/GI: No: Symptoms Reported, See HPI, Nausea, Vomiting, Abdominal cramping : No: Symptoms Reported Integumentary: No: Symptoms Reported, Rash Neurological: Yes: Symptoms reported, See HPI, Unsteady Gait All Other Systems: Reviewed and Negative *Physical Exam - Vital Signs Last Vital Signs Temp Pulse Resp BP Pulse Ox 98.7 F 93 H 16 125/78 99 12/09/19 12:00 12/09/19 12:00 12/09/19 12:00 12/09/19 12:00 12/09/19 12:00 - Physical Exam 12/09/19 13:59 GENERAL: Well developed, well nourished. Awake and alert. No acute distress. Alcohol on breath HEENT: Normocephalic, atraumatic. PERRLA, EOMI. No conjunctival pallor. Sclera are non-icteric. Moist mucous membranes. Oropharynx is clear. NECK: Supple. Full ROM. CARDIOVASCULAR: Regular rate and rhythm. No murmurs, rubs, or gallops. Distal pulses are 2+ and symmetric. PULMONARY: No evidence of respiratory distress. Lungs clear to auscultation bilaterally. No wheezing, rales or rhonchi. ABDOMINAL: Soft. Non-tender. Non-distended. No rebound or guarding. No organomegaly. Normoactive bowel sounds. MUSCULOSKELETAL Normal range of motion at all joints. SKIN: Warm and dry. Normal capillary refill. No rashes. No jaundice. No cyanosis NEUROLOGICAL: Alert, awake, appropriate. Gait is normal without ataxia after sleeping for 2 hours. PSYCHIATRIC: Cooperative. Good eye contact. Appropriate mood General Appearance: Yes: Nourished, Appropriately Dressed. No: Apparent Distress ED Treatment Course - LABORATORY CBC & Chemistry Diagram: 12/09/19 13:30 12/09/19 13:30 Medical Decision Making - Medical Decision Making 12/09/19 13:57 Patient with past medical history of alcohol abuse being seen in [facility] rehab center for evaluations due to patient ingesting rubbing alcohol this morning. Patient reportedly drank small amounts of rubbing alcohol which he mixed with water which he quantified to about 10 very small amount. Patient reported drinking vodka daily and being seen in [facility] for rehab and detox. Denies chest pain, palpitation, shortness of breath, dizziness, abdominal pains , nausea vomiting. Denies any other symptoms Exam significant for patient alert and oriented and answering questions in full sentences. No slurred speech. Patient able to ambulate with normal gait. Lungs clear to auscultation bilateral normal cardio exam. Patient symptoms likely from alcohol intoxication and less likely from rubbing alcohol intoxication considering only ingested small amount. Will do isopropyl no intoxication or poisoning labs to rule out any poisoning. Patient will be cleared back to go to [facility] for rehab based on lab results 12/09/19 16:11 Called and spoke to poison control nurse Nilda who advised patient should be observed for 6 hours for any [employer] depression. Patient asymptomatic now and pending as above with no result. Patient signed out to CECILE Smith for follow-up care Discharge - Discharge Information Problems reviewed: Yes Clinical Impression/Diagnosis: Poisoning by isopropyl alcohol Condition: Fair Disposition: HOME - Admission No - Follow up/Referral Referrals: ON STAFF,NOT [Primary Care Provider] - - Patient Discharge Instructions Additional Instructions: Avoid drinking alcohol- ethanol (liquor)or isopropyl (rubbing). Eat a well-balanced diet. Keep well-hydrated with nonalcoholic fluids. You can call our detox facility at at any time should she choose to pursue detox treatments. Return to emergency department for any concerns. - Post Discharge Activity
[2019-12-09 14:04] LABS: BASO % 0.5 % (0-2.0); EOS % 0.6 % (0-4.5); HEMATOCRIT 44.8 % (35.4-49); HEMOGLOBIN 15.1 GM/dL (11.7-16.9); LYMPH % 16.3 % (8-40); MCH 30.5 pg (25.7-33.7); MCHC 33.7 g/dl (32.0-35.9); MEAN CELL VOLUME 90.3 fl (80-96); MEAN PLT VOLUME 7.2 fl (7.5-11.1); MONO % 6.8 % (3.8-10.2); NEUT % 75.8 % (42.8-82.8); PLATELET COUNT 362 K/MM3 (134-434); RBC 4.96 M/mm3 (4.00-5.60); RDW 13.8 % (11.9-15.9); WHITE BLOOD COUNT 9.9 K/mm3 (4.0-10.0)
[2019-12-09 14:16] LABS: PH,URINE 5.5 (5.0-8.0); URINE APPEARANCE CLEAR; URINE BILIRUBIN NEGATIVE (NEGATIVE); URINE COLOR YELLOW; URINE GLUCOSE (UA) NEGATIVE (NEGATIVE); URINE KETONE 1+ (NEGATIVE); URINE LEUK ESTERASE NEGATIVE (NEGATIVE); URINE NITRITE NEGATIVE (NEGATIVE); URINE PROTEIN NEGATIVE (NEGATIVE)
[2019-12-09 14:24] LABS: ALBUMIN 3.8 g/dl (3.4-5.0); BILIRUBIN,TOTAL 0.4 mg/dL (0.2-1); CALCIUM 8.7 mg/dL (8.5-10.1); CREATININE 1.4 mg/dL (0.55-1.3); POTASSIUM 3.7 mmol/L (3.5-5.1); TOT PROT 7.8 g/dl (6.4-8.2)
--- NOTE | 2019-12-09 15:19 | PDOC ---
*Physical Exam - Vital Signs Last Vital Signs Temp Pulse Resp BP Pulse Ox 98.7 F 93 H 16 125/78 99 12/09/19 12:00 12/09/19 12:00 12/09/19 12:00 12/09/19 12:00 12/09/19 12:00 ED Treatment Course - LABORATORY CBC & Chemistry Diagram: 12/09/19 13:30 12/09/19 13:30 - ADDITIONAL ORDERS Additional order review: Laboratory Results 12/09/19 12/09/19 12/09/19 13:30 13:30 13:30 VBG pH 7.39 POC VBG pCO2 47.0 POC VBG pO2 < 49 H VBG HCO3 27.5 VBG O2 Sat (Yves) 55.5 L VBG Base Excess 2.3 H Sodium Potassium Chloride Carbon Dioxide Anion Gap BUN Creatinine Est GFR (CKD-EPI)AfAm Est GFR (CKD-EPI)NonAf Random Glucose Serum Osmolality Calcium Total Bilirubin AST ALT Alkaline Phosphatase Total Protein Albumin Urine Color Yellow Urine Appearance Clear Urine pH 5.5 Ur Specific [place] 1.016 Urine Protein Negative Urine Glucose (UA) Negative Urine Ketones 1+ H Urine Blood Negative Urine Nitrite Negative Urine Bilirubin Negative Urine Urobilinogen 1.0 Ur Leukocyte Esterase Negative Ur Random Sodium 52 Ur Random Potassium 20.0 L Ur Random Chloride 63 L 12/09/19 12/09/19 13:30 13:30 VBG pH POC VBG pCO2 POC VBG pO2 VBG HCO3 VBG O2 Sat (Yves) VBG Base Excess Sodium 140 Potassium 3.7 Chloride 106 Carbon Dioxide 26 Anion Gap 8 BUN 7.0 Creatinine 1.4 H Est GFR (CKD-EPI)AfAm 72.32 Est GFR (CKD-EPI)NonAf 62.40 Random Glucose 103 Serum Osmolality 347 H Calcium 8.7 Total Bilirubin 0.4 AST 29 ALT 28 Alkaline Phosphatase 112 Total Protein 7.8 Albumin 3.8 Urine Color Urine Appearance Urine pH Ur Specific [place] Urine Protein Urine Glucose (UA) Urine Ketones Urine Blood Urine Nitrite Urine Bilirubin Urine Urobilinogen Ur Leukocyte Esterase Ur Random Sodium Ur Random Potassium Ur Random Chloride 12/09/19 13:30 RBC 4.96 MCV 90.3 MCHC 33.7 RDW 13.8 MPV 7.2 L Neutrophils % 75.8 Lymphocytes % 16.3 D Monocytes % 6.8 Eosinophils % 0.6 D Basophils % 0.5 Medical Decision Making - Medical Decision Making 12/09/19 15:19 The patient was seen and evaluated in conjunction with ADRIANA Ulloa under my direct supervision, ancillary studies were reviewed. I independently interviewed and evaluated the patient and I agree with the plan as outlined by ADRIANA Ulloa. The patient is a 39-year-old history of EtOH abuse presenting with ingestion of a small amount of isopropyl alcohol mixed with water this morning. Patient states he was feeling symptoms of withdrawal approximately 5 AM so had small amount of rubbing alcohol mixed with water as there was only thing that was present. The patient states that approximately 9-10 AM he had a bottle of vodka. patient denies intention of harming himself by drinking the rubbing alcohol and merely wanted to defer the effects of withdrawal. he is otherwise asymptomatic without any other symptoms of chest pain, palpitations, shortness of breath, nausea, vomiting, abdominal pain, headache, lightheadedness. on exam the pt is well appearing, in no distress, with normal mentation and response. The patient's blood work was reviewed and notable for a elevated serum osm awaiting etoh level to calculate for osm gap. will also discuss with tox 12/09/19 17:19 Pts etoh level elevated - there is an osm gap - likely from isopropyl etoh. no signs of acidosis - suggesting against presence of methanol or ethyene glycol as pt is at mental status, pt will be dc back to [facility] case was discussed with poison control pt advised against drinking other toxic alcohols int he future. I discussed the physical exam findings, ancillary test results and final diagnoses with the patient. I answered all of the patient's questions. The patient was satisfied with the care received and felt comfortable with the discharge plan and treatment plan. The patient will call their primary care physician within 24 hours to arrange follow-up and will return to the Emergency Department with any new, persistent or worsening symptoms. Discharge - Discharge Information Problems reviewed: Yes Clinical Impression/Diagnosis: Poisoning by isopropyl alcohol Condition: Fair Disposition: HOME - Follow up/Referral Referrals: ON STAFF,NOT [Primary Care Provider] - - Patient Discharge Instructions Additional Instructions: Avoid drinking alcohol- ethanol (liquor)or isopropyl (rubbing). Eat a well-balanced diet. Keep well-hydrated with nonalcoholic fluids. You can call our detox facility at at any time should she choose to pursue detox treatments. Return to emergency department for any concerns. - Post Discharge Activity
--- NOTE | 2019-12-09 16:40 | PDOC ---
*Physical Exam - Vital Signs Last Vital Signs Temp Pulse Resp BP Pulse Ox 98.7 F 93 H 16 125/78 99 12/09/19 12:00 12/09/19 12:00 12/09/19 12:00 12/09/19 12:00 12/09/19 12:00 - Physical Exam General Appearance: Yes: Appropriately Dressed. No: Apparent Distress HEENT: positive: Normal ENT Inspection Neck: positive: Trachea midline, Supple Respiratory/Chest: positive: Lungs Clear, Normal Breath Sounds. negative: Respiratory Distress, Accessory Muscle Use Cardiovascular: positive: Regular Rhythm, Regular Rate, S1, S2. negative: Edema , Murmur Gastrointestinal/Abdominal: positive: Normal Bowel Sounds, Soft. negative: Tender Musculoskeletal: positive: Normal Inspection. negative: CVA Tenderness Extremity: positive: Normal Inspection Integumentary: positive: Normal Color, Dry, Warm Neurologic: positive: Alert ED Treatment Course - LABORATORY CBC & Chemistry Diagram: 12/09/19 13:30 12/09/19 13:30 - ADDITIONAL ORDERS Additional order review: Laboratory Results 12/09/19 12/09/19 12/09/19 13:30 13:30 13:30 VBG pH 7.39 POC VBG pCO2 47.0 POC VBG pO2 < 49 H VBG HCO3 27.5 VBG O2 Sat (Yves) 55.5 L VBG Base Excess 2.3 H Sodium Potassium Chloride Carbon Dioxide Anion Gap BUN Creatinine Est GFR (CKD-EPI)AfAm Est GFR (CKD-EPI)NonAf Random Glucose Serum Osmolality Calcium Total Bilirubin AST ALT Alkaline Phosphatase Total Protein Albumin Urine Color Yellow Urine Appearance Clear Urine pH 5.5 Ur Specific [place] 1.016 Urine Protein Negative Urine Glucose (UA) Negative Urine Ketones 1+ H Urine Blood Negative Urine Nitrite Negative Urine Bilirubin Negative Urine Urobilinogen 1.0 Ur Leukocyte Esterase Negative Ur Random Sodium 52 Ur Random Potassium 20.0 L Ur Random Chloride 63 L Alcohol, Quantitative 12/09/19 12/09/19 13:30 13:30 VBG pH POC VBG pCO2 POC VBG pO2 VBG HCO3 VBG O2 Sat (Yves) VBG Base Excess Sodium 140 Potassium 3.7 Chloride 106 Carbon Dioxide 26 Anion Gap 8 BUN 7.0 Creatinine 1.4 H Est GFR (CKD-EPI)AfAm 72.32 Est GFR (CKD-EPI)NonAf 62.40 Random Glucose 103 Serum Osmolality 347 H Calcium 8.7 Total Bilirubin 0.4 AST 29 ALT 28 Alkaline Phosphatase 112 Total Protein 7.8 Albumin 3.8 Urine Color Urine Appearance Urine pH Ur Specific [place] Urine Protein Urine Glucose (UA) Urine Ketones Urine Blood Urine Nitrite Urine Bilirubin Urine Urobilinogen Ur Leukocyte Esterase Ur Random Sodium Ur Random Potassium Ur Random Chloride Alcohol, Quantitative 116.8 H 12/09/19 13:30 RBC 4.96 MCV 90.3 MCHC 33.7 RDW 13.8 MPV 7.2 L Neutrophils % 75.8 Lymphocytes % 16.3 D Monocytes % 6.8 Eosinophils % 0.6 D Basophils % 0.5 ED Progress Note - Progress Note Progress Note: 12/09/19 16:39 Received signout from ADRIANA Ulloa. Briefly this is a 39-year-old male with history of alcohol abuse who presented to [facility] today for alcohol rehabilitation and detoxification after drinking small amount of isopropyl alcohol diluted in water. Lab testing notable for pH 7.39 the serum osmole gap of 27. Serum alcohol level 116.8. Poison control has been contacted prior to signout recommendation was to monitor for 6 hours. Patient is currently in the fourth hour of monitoring since call to poison control. Disposition pending reassessment and re-conference with poison command and control systems integrator. 12/09/19 17:17 Medical Decision Making - Medical Decision Making 12/09/19 17:28 Presently physical exam is notable for mild tremors with extension of the hands. No tongue fasciculations present. Aspirin and Tylenol levels are normal. Librium 25 mg orally now I will contact poison control for further recommendations as patient appears safe for discharge. It was confirmed with the patient upon discussion that this was an intentional ingestion of alcohol for intoxication not for self-harm. 12/09/19 17:29 12/09/19 18:03 Case has been discussed with Nilda from poison control. Based on patient's physical exam and laboratory findings no further intervention is needed from a poison control standpoint. I feel it is safe to discharge home for patient to seek out care for detox should he choose. 12/09/19 18:06 Discharge - Discharge Information Problems reviewed: Yes Clinical Impression/Diagnosis: Poisoning by isopropyl alcohol Condition: Fair Disposition: HOME - Admission No - Follow up/Referral Referrals: ON STAFF,NOT [Primary Care Provider] - - Patient Discharge Instructions Additional Instructions: Avoid drinking alcohol- ethanol (liquor)or isopropyl (rubbing). Eat a well-balanced diet. Keep well-hydrated with nonalcoholic fluids. You can call our detox facility at at any time should she choose to pursue detox treatments. Return to emergency department for any concerns. - Post Discharge Activity
[2019-12-09] MEDS ORDERED: chlordiazePOXIDE HCL 25 MG CAPSULE PO ONE (17:22)
[2019-12-09] MEDS ORDERED: chlordiazePOXIDE HCL 25 MG CAPSULE ONE (18:28)
[2019-12-09 18:32] VITALS: BP 149/91; PULSE 95; TEMP 98.1
--- NOTE | 2019-12-10 14:33 | EKG ---
Test Reason : Blood Pressure : / mmHG Vent. Rate : 092 BPM Atrial Rate : 092 BPM P-R Int : 138 ms QRS Dur : 108 ms QT Int : 370 ms P-R-T Axes : 040 -14 037 degrees QTc Int : 457 ms NORMAL SINUS RHYTHM INCOMPLETE RIGHT BUNDLE BRANCH BLOCK BORDERLINE ECG Confirmed by MD NEELIMA, JULIOCESAR ([id number]) on 12/10/2019 2:33:15 PM Referred By: Confirmed By:JULIOCESAR ORTEZ MD
== END 2019-12-09 18:30 | disposition home or self-care (01) ==
LOC: JER 11:49
DX: T51.2X1A Toxic effect of 2-Propanol, accidental (unintentional), initial encounter (principal); X58.XXXA Exposure to other specified factors, initial encounter; Y93.89 Activity, other specified; Y92.89 Other specified places as the place of occurrence of the external cause; F10.10 Alcohol abuse, uncomplicated
CPT/HCPCS: 36415; 80053; 80307; 81003; 82436; 82803; 83930; 84133; 84300; 85025; 93005; 93010; 99283-25; G0480

== ENCOUNTER 2022-01-24 17:36 | Inpatient (IN) | payer OTHER ==
[2022-01-24 18:44] VITALS: BMI 39.9
[2022-01-24] MEDS ORDERED: chlordiazePOXIDE HCL 25 MG CAPSULE PO ONE (20:00)
[2022-01-24] MEDS ORDERED: MAGNESIUM CITRATE 300 ML BOTTLE PO PRN (20:00)
[2022-01-24] MEDS ORDERED: MAGNESIUM HYDROX 2400MG/30ML ORAL SUSPENSION 30 ML CUP PO PRN (20:00)
[2022-01-24] MEDS ORDERED: NICOTINE POLACRILEX 2 MG GUM BUC PRN (20:00)
[2022-01-24] MEDS ORDERED: METHOCARBAMOL 500 MG TABLET PO PRN (20:00)
[2022-01-24] MEDS ORDERED: ACETAMINOPHEN 325 MG TABLET (FP) PO PRN ×2 (20:00)
[2022-01-24] MEDS ORDERED: BISMUTH SUBSALICYLATE 524 MG/30 ML PO PRN (20:00)
[2022-01-24] MEDS ORDERED: LOPERAMIDE HCL 2 MG CAPSULE PO PRN (20:00)
[2022-01-24] MEDS ORDERED: MAG HYDROX/AL HYDROX/SIMETH 30 ML UNIT-DOSE CUP PO PRN (20:00)
[2022-01-24] MEDS ORDERED: MENTHOL/PHENOL 1 EACH UD MM PRN (20:00)
[2022-01-24] MEDS ORDERED: ALBUTEROL SO4 HFA INHALER IH PRN (20:13)
[2022-01-24] MEDS: THIAMINE HCL 100 MG TABLET (FP) PO SCH (21:42)
[2022-01-24] MEDS: MELATONIN 5 MG TABLETS PO SCH (21:42)
[2022-01-24] MEDS: ONDANSETRON *ODT* 4 MG TABLET SL PRN (21:46)
[2022-01-24] MEDS: chlordiazePOXIDE HCL 25 MG CAPSULE PO SCH (22:01)
[2022-01-25] MEDS: chlordiazePOXIDE HCL 25 MG CAPSULE PO PRN ×2 (01:47→12:35)
[2022-01-25] MEDS: chlordiazePOXIDE HCL 25 MG CAPSULE PO SCH ×4 (05:06→22:26)
[2022-01-25] MEDS: ONDANSETRON *ODT* 4 MG TABLET SL PRN ×2 (05:07→10:28)
[2022-01-25] MEDS ORDERED: busPIRone HCL 10 MG TABLET (FP) PO SCH (10:00)
[2022-01-25] MEDS: HYDROCHLOROTHIAZIDE 25 MG TABLET (FP) PO SCH (10:27)
[2022-01-25] MEDS: PRENATAL VITAMINS W/ FOLIC ACID TABLET (FP) PO SCH (10:27)
[2022-01-25] MEDS: SERTRALINE HCL 50 MG TABLET (FP) PO SCH (10:29)
[2022-01-25 12:29] LABS: CALCIUM 8.3 mg/dL (8.5-10.1)
[2022-01-25 12:30] LABS: ALBUMIN 3.4 g/dl (3.4-5.0); BLOOD UREA NITROGEN 9.5 mg/dL (7-18)
[2022-01-25 12:33] LABS: CREATININE 0.9 mg/dL (0.55-1.3)
[2022-01-25 12:35] LABS: BILIRUBIN,TOTAL 0.6 mg/dL (0.2-1); HEMATOCRIT 41.5 % (35.4-49); MCH 30.8 pg (25.7-33.7); MCHC 33.8 g/dl (32.0-35.9); MEAN CELL VOLUME 91.1 fl (80-96); MEAN PLT VOLUME 7.2 fl (7.5-11.1); PLATELET COUNT 206 10^3/uL (134-434); RBC 4.55 M/mm3 (4.00-5.60); RDW 14.5 % (11.9-15.9); WHITE BLOOD COUNT 9.1 K/mm3 (4.0-10.0)
[2022-01-25] MEDS: busPIRone HCL 5 MG TABLET PO SCH (22:26)
[2022-01-25] MEDS: THIAMINE HCL 100 MG TABLET (FP) PO SCH (22:27)
[2022-01-25] MEDS: MELATONIN 5 MG TABLETS PO SCH (22:27)
[2022-01-25] MEDS: IBUPROFEN 400 MG TABLET (FP) PO PRN (22:29)
[2022-01-26] MEDS: chlordiazePOXIDE HCL 25 MG CAPSULE PO SCH ×4 (05:34→22:21)
[2022-01-26 10:06] LABS: SARS-CoV-2 NAA Not Detected (Not Detected)
[2022-01-26] MEDS: busPIRone HCL 5 MG TABLET PO SCH ×2 (10:34→22:21)
[2022-01-26] MEDS: SERTRALINE HCL 50 MG TABLET (FP) PO SCH (10:35)
[2022-01-26] MEDS: PRENATAL VITAMINS W/ FOLIC ACID TABLET (FP) PO SCH (10:35)
[2022-01-26] MEDS: HYDROCHLOROTHIAZIDE 25 MG TABLET (FP) PO SCH (10:35)
[2022-01-26] MEDS: IBUPROFEN 400 MG TABLET (FP) PO PRN (10:37)
[2022-01-26] MEDS: THIAMINE HCL 100 MG TABLET (FP) PO SCH (22:20)
[2022-01-26] MEDS: MELATONIN 5 MG TABLETS PO SCH (22:21)
[2022-01-27] MEDS ORDERED: chlordiazePOXIDE HCL 10 MG CAPSULE PO PRN
[2022-01-27] MEDS: chlordiazePOXIDE HCL 10 MG CAPSULE PO SCH ×4 (06:04→22:24)
[2022-01-27] MEDS: ONDANSETRON *ODT* 4 MG TABLET SL PRN (06:05)
[2022-01-27] MEDS: busPIRone HCL 5 MG TABLET PO SCH ×2 (10:09→22:24)
[2022-01-27] MEDS: HYDROCHLOROTHIAZIDE 25 MG TABLET (FP) PO SCH (10:09)
[2022-01-27] MEDS: PRENATAL VITAMINS W/ FOLIC ACID TABLET (FP) PO SCH (10:09)
[2022-01-27] MEDS: SERTRALINE HCL 50 MG TABLET (FP) PO SCH (10:09)
[2022-01-27] MEDS: THIAMINE HCL 100 MG TABLET (FP) PO SCH (22:24)
[2022-01-27] MEDS: MELATONIN 5 MG TABLETS PO SCH (22:24)
[2022-01-28] MEDS: chlordiazePOXIDE HCL 10 MG CAPSULE PO SCH ×2 (05:58→18:09)
[2022-01-28] MEDS: HYDROCHLOROTHIAZIDE 25 MG TABLET (FP) PO SCH (10:05)
[2022-01-28] MEDS: PRENATAL VITAMINS W/ FOLIC ACID TABLET (FP) PO SCH (10:05)
[2022-01-28] MEDS: SERTRALINE HCL 50 MG TABLET (FP) PO SCH (10:06)
[2022-01-28] MEDS: busPIRone HCL 5 MG TABLET PO SCH ×2 (10:06→22:32)
[2022-01-28] MEDS ORDERED: chlordiazePOXIDE HCL 10 MG CAPSULE PO ONE (11:22)
[2022-01-28] MEDS ORDERED: LISINOPRIL 10 MG TABLET PO SCH (11:30)
[2022-01-28] MEDS: THIAMINE HCL 100 MG TABLET (FP) PO SCH (22:32)
[2022-01-28] MEDS: MELATONIN 5 MG TABLETS PO SCH (22:32)
[2022-01-29] MEDS ORDERED: chlordiazePOXIDE HCL 10 MG CAPSULE PO ONE (05:00)
[2022-01-29 07:02] VITALS: BP 122/86; PULSE 81; TEMP 96.9
== END 2022-01-29 09:49 | disposition home or self-care (01) | DRG 775 ==
LOC: YASAS 17:36 → Y6N 18:52
PROVIDERS: ADMIT Allergy & Immunology; ATTEND Allergy & Immunology
PROC: HZ2ZZZZ Detoxification Services for Substance Abuse Treatment (ICD-10-PCS; principal; 2022-01-24)
DX: F10.230 Alcohol dependence with withdrawal, uncomplicated (principal); F10.220 Alcohol dependence with intoxication, uncomplicated; F10.280 Alcohol dependence with alcohol-induced anxiety disorder; F10.24 Alcohol dependence with alcohol-induced mood disorder; F12.20 Cannabis dependence, uncomplicated; F41.9 Anxiety disorder, unspecified; F32.A Depression, unspecified; F43.10 Post-traumatic stress disorder, unspecified; I10 Essential (primary) hypertension; J45.20 Mild intermittent asthma, uncomplicated; R74.01 Elevation of levels of liver transaminase levels; E66.9 Obesity, unspecified; Z68.39 Body mass index [BMI] 39.0-39.9, adult; Z72.0 Tobacco use; Z91.51 Personal history of suicidal behavior; Z56.0 Unemployment, unspecified
CPT/HCPCS: 36415; 70450-TC; 80053; 85027; 86780; 87811; 90832-95; 90834; 93005; 93010; C9803-CS; Q0162; U0003; U0005

== ENCOUNTER 2022-08-15 12:13 | Inpatient (IN) | payer OTHER ==
[2022-08-15 12:34] VITALS: BMI 43.0
[2022-08-15] MEDS ORDERED: IBUPROFEN 400 MG TABLET (FP) PO PRN (13:40)
[2022-08-15] MEDS ORDERED: ACETAMINOPHEN 325 MG TABLET (FP) PO PRN ×2 (13:40)
[2022-08-15] MEDS ORDERED: BISMUTH SUBSALICYLATE 262 MG/15 ML BTL PO PRN (13:40)
[2022-08-15] MEDS ORDERED: BENZOCAINE/MENTHOL (CHLORASEPTIC ) LOZENGE MM PRN (13:40)
[2022-08-15] MEDS ORDERED: MAGNESIUM CITRATE 300 ML BOTTLE PO PRN (13:40)
[2022-08-15] MEDS ORDERED: IBUPROFEN 600 MG TABLET (FP) PO PRN (13:40)
[2022-08-15] MEDS ORDERED: NALOXONE HCL (KLOXXADO) 8 MG SPRAY NS PRN (13:40)
[2022-08-15] MEDS ORDERED: DICYCLOMINE HCL 10 MG CAPSULE PO PRN (13:40)
[2022-08-15] MEDS ORDERED: LOPERAMIDE HCL 2 MG CAPSULE PO PRN (13:40)
[2022-08-15] MEDS ORDERED: MAG HYDROX/AL HYDROX/SIMETH 30 ML UNIT-DOSE CUP PO PRN (13:40)
[2022-08-15] MEDS ORDERED: ONDANSETRON *ODT* 4 MG TABLET SL PRN (13:40)
[2022-08-15] MEDS ORDERED: MAGNESIUM HYDROX 2400MG/30ML ORAL SUSPENSION 30 ML CUP PO PRN (13:40)
[2022-08-15] MEDS ORDERED: ALBUTEROL SO4 HFA INHALER IH PRN (13:45)
[2022-08-15] MEDS: hydrOXYzine PAMOATE 25 MG CAPSULE (FP) PO PRN ×2 (15:22→22:36)
[2022-08-15] MEDS: LORazepam 1 MG TABLET PO PRN (15:22)
[2022-08-15] MEDS: METHOCARBAMOL 500 MG TABLET PO PRN ×2 (15:22→22:37)
[2022-08-15] MEDS: LORazepam 2 MG TABLET PO SCH ×2 (17:54→22:35)
[2022-08-15] MEDS: THIAMINE HCL 100 MG TABLET (FP) PO SCH (22:35)
[2022-08-15] MEDS: MELATONIN 5 MG TABLETS PO SCH (22:35)
[2022-08-16] MEDS: LORazepam 2 MG TABLET PO SCH ×4 (06:04→22:41)
[2022-08-16 10:13] LABS: ALBUMIN 3.2 g/dl (3.4-5.0); BLOOD UREA NITROGEN 8.2 mg/dL (7-18); CALCIUM 8.5 mg/dL (8.5-10.1)
[2022-08-16 10:16] LABS: CREATININE 0.8 mg/dL (0.55-1.3)
[2022-08-16 10:18] LABS: BILIRUBIN,TOTAL 0.4 mg/dL (0.2-1); TOT PROT 6.8 g/dl (6.4-8.2)
[2022-08-16 10:31] LABS: HEMATOCRIT 42.6 % (35.4-49); HEMOGLOBIN 14.2 GM/dL (11.7-16.9); MCH 30.6 pg (25.7-33.7); MCHC 33.5 g/dl (32.0-35.9); MEAN CELL VOLUME 91.3 fl (80-96); MEAN PLT VOLUME 7.5 fl (7.5-11.1); PLATELET COUNT 321 10^3/uL (134-434); RBC 4.66 M/mm3 (4.00-5.60); RDW 14.6 % (11.9-15.9); WHITE BLOOD COUNT 10.9 K/mm3 (4.0-10.0)
[2022-08-16] MEDS: METHOCARBAMOL 500 MG TABLET PO PRN ×2 (10:38→18:03)
[2022-08-16] MEDS: hydrOXYzine PAMOATE 25 MG CAPSULE (FP) PO PRN ×2 (10:38→22:41)
[2022-08-16] MEDS: PRENATAL VITAMINS W/ FOLIC ACID TABLET (FP) PO SCH (10:38)
[2022-08-16 11:06] LABS: HIV INTERPRETATION NEGATIVE (NEGATIVE)
[2022-08-16] MEDS ORDERED: PNEUMOC 20-VAL CONJ-DIP CRM/PF 0.5 ML SYRINGE IM ONE (12:00)
[2022-08-16] MEDS: LACTULOSE 20 GM/30 ML UDC (FOR ORAL USE ONLY) PO SCH ×3 (13:13→22:41)
[2022-08-16] MEDS: LORazepam 1 MG TABLET PO PRN ×2 (13:21→19:51)
[2022-08-16] MEDS: THIAMINE HCL 100 MG TABLET (FP) PO SCH (22:41)
[2022-08-16] MEDS: MELATONIN 5 MG TABLETS PO SCH (22:41)
[2022-08-17] MEDS: LORazepam 1 MG TABLET PO SCH ×3 (06:23→17:50)
[2022-08-17] MEDS ORDERED: METHOCARBAMOL 500 MG TABLET PO PRN (08:08)
[2022-08-17] MEDS: PRENATAL VITAMINS W/ FOLIC ACID TABLET (FP) PO SCH (10:45)
[2022-08-17] MEDS: LACTULOSE 20 GM/30 ML UDC (FOR ORAL USE ONLY) PO SCH ×3 (10:45→17:50)
[2022-08-17 18:28] VITALS: BP 126/95; PULSE 99; RESP 20; TEMP 97.3
[2022-08-18] MEDS ORDERED: LORazepam 0.5 MG TABLET PO PRN
[2022-08-18] MEDS ORDERED: LORazepam 0.5 MG TABLET PO SCH (05:00)
[2022-08-19] MEDS ORDERED: LORazepam 0.5 MG TABLET PO ONE (05:00)
== END 2022-08-17 20:28 | disposition left against medical advice (07) | DRG 770 ==
LOC: YASAS 12:13 → Y3N 14:48
PROVIDERS: ADMIT Allergy & Immunology; ATTEND Surgery
PROC: HZ2ZZZZ Detoxification Services for Substance Abuse Treatment (ICD-10-PCS; principal; 2022-08-15)
DX: F10.230 Alcohol dependence with withdrawal, uncomplicated (principal); F12.20 Cannabis dependence, uncomplicated; F41.8 Other specified anxiety disorders; F32.A Depression, unspecified; F43.10 Post-traumatic stress disorder, unspecified; E78.5 Hyperlipidemia, unspecified; G47.33 Obstructive sleep apnea (adult) (pediatric); I10 Essential (primary) hypertension; J45.20 Mild intermittent asthma, uncomplicated; K74.60 Unspecified cirrhosis of liver; K76.0 Fatty (change of) liver, not elsewhere classified; R74.01 Elevation of levels of liver transaminase levels; E66.01 Morbid (severe) obesity due to excess calories; Z68.41 Body mass index [BMI] 40.0-44.9, adult; Z91.199 Patient's noncompliance with other medical treatment and regimen due to unspecified reason
CPT/HCPCS: 36415; 80053; 82140; 85027; 86780; 87389; 90677; 93005; 93010; C9803-CS; U0003; U0005

== ENCOUNTER 2023-03-11 17:23 | Inpatient (IN) | payer OTHER ==
[2023-03-11 19:28] VITALS: BMI 28.3
[2023-03-11] MEDS ORDERED: guaiFENesin 600 MG TABLET.ER (FP) PO PRN (20:41)
[2023-03-11] MEDS ORDERED: MAGNESIUM HYDROX 2400MG/30ML ORAL SUSPENSION 30 ML CUP PO PRN (20:41)
[2023-03-11] MEDS ORDERED: BISMUTH SUBSALICYLATE 524 MG/30 ML PO PRN (20:41)
[2023-03-11] MEDS ORDERED: BENZONATATE 200 MG CAPSULE PO PRN (20:41)
[2023-03-11] MEDS ORDERED: DICYCLOMINE HCL 10 MG CAPSULE PO PRN (20:41)
[2023-03-11] MEDS ORDERED: IBUPROFEN 600 MG TABLET (FP) PO PRN (20:41)
[2023-03-11] MEDS ORDERED: POLYETHYLENE GLYCOL (HEALTHYLAX) 3350 17 GM PACKET PO PRN (20:41)
[2023-03-11] MEDS ORDERED: IBUPROFEN 400 MG TABLET (FP) PO PRN (20:41)
[2023-03-11] MEDS ORDERED: NALOXONE HCL 0.4 MG/ML VIAL IM PRN (20:41)
[2023-03-11] MEDS ORDERED: ONDANSETRON *ODT* 4 MG TABLET SL PRN (20:41)
[2023-03-11] MEDS ORDERED: NALOXONE HCL (KLOXXADO) 8 MG SPRAY NS PRN (20:41)
[2023-03-11] MEDS ORDERED: LOPERAMIDE HCL 2 MG CAPSULE PO PRN (20:41)
[2023-03-11] MEDS ORDERED: ACETAMINOPHEN 325 MG TABLET (FP) PO PRN (20:41)
[2023-03-11] MEDS ORDERED: MAG HYDROX/AL HYDROX/SIMETH 30 ML UNIT-DOSE CUP PO PRN (20:41)
[2023-03-11] MEDS ORDERED: BENZOCAINE/MENTHOL (CHLORASEPTIC ) LOZENGE MM PRN (20:41)
[2023-03-11] MEDS ORDERED: LORazepam 2 MG/ML SDV VIAL IM ONE (23:11)
[2023-03-12] MEDS: THIAMINE HCL 100 MG TABLET (FP) PO SCH ×2 (02:06→22:51)
[2023-03-12] MEDS: MELATONIN 5 MG TABLETS PO SCH ×2 (02:06→22:51)
[2023-03-12] MEDS: LORazepam 2 MG TABLET PO SCH ×5 (02:06→22:52)
[2023-03-12] MEDS: LORazepam 1 MG TABLET PO PRN (02:33)
[2023-03-12] MEDS: PRENATAL VITAMINS W/ FOLIC ACID TABLET (FP) PO SCH (10:11)
[2023-03-12 11:04] LABS: HEMATOCRIT 39.8 % (35.4-49); HEMOGLOBIN 13.6 GM/dL (11.7-16.9); MCHC 34.2 g/dl (32.0-35.9); MEAN CELL VOLUME 87.8 fl (80-96); MEAN PLT VOLUME 7.7 fl (7.5-11.1); PLATELET COUNT 258 10^3/uL (134-434); RBC 4.53 M/mm3 (4.00-5.60); RDW 16.8 % (11.9-15.9); WHITE BLOOD COUNT 9.6 K/mm3 (4.0-10.0)
[2023-03-12 11:06] LABS: POTASSIUM 3.5 mmol/L (3.5-5.1)
[2023-03-12 11:11] LABS: ALBUMIN 3.4 g/dl (3.4-5.0); BLOOD UREA NITROGEN 10.6 mg/dL (7-18); CALCIUM 8.8 mg/dL (8.5-10.1)
[2023-03-12 11:14] LABS: CREATININE 0.8 mg/dL (0.55-1.3)
[2023-03-12 11:16] LABS: BILIRUBIN,TOTAL 1.2 mg/dL (0.2-1)
[2023-03-13] MEDS: LORazepam 1 MG TABLET PO PRN (01:44)
[2023-03-13] MEDS: LORazepam 1 MG TABLET PO SCH ×2 (04:12→10:08)
[2023-03-13 08:49] VITALS: RESP 18
[2023-03-13] MEDS: PRENATAL VITAMINS W/ FOLIC ACID TABLET (FP) PO SCH (10:07)
[2023-03-13] MEDS ORDERED: chlordiazePOXIDE HCL 25 MG CAPSULE PO PRN (10:10)
[2023-03-13 13:34] LABS: HEMATOCRIT 42.2 % (35.4-49); HEMOGLOBIN 14.2 GM/dL (11.7-16.9); MCH 29.5 pg (25.7-33.7); MCHC 33.7 g/dl (32.0-35.9); MEAN CELL VOLUME 87.8 fl (80-96); MEAN PLT VOLUME 7.5 fl (7.5-11.1); PLATELET COUNT 276 10^3/uL (134-434); RBC 4.81 M/mm3 (4.00-5.60); RDW 17.2 % (11.9-15.9); WHITE BLOOD COUNT 8.2 K/mm3 (4.0-10.0)
[2023-03-13 13:42] LABS: POTASSIUM 3.6 mmol/L (3.5-5.1)
[2023-03-13 13:44] LABS: BLOOD UREA NITROGEN 10.4 mg/dL (7-18); CALCIUM 9.3 mg/dL (8.5-10.1)
[2023-03-13 13:48] LABS: CREATININE 0.7 mg/dL (0.55-1.3)
[2023-03-13 14:48] LABS: HIV INTERPRETATION NEGATIVE (NEGATIVE)
[2023-03-13] MEDS ORDERED: chlordiazePOXIDE HCL 25 MG CAPSULE PO SCH (17:00)
[2023-03-13 17:24] VITALS: BP 136/101; PULSE 101; TEMP 97.1
[2023-03-14] MEDS ORDERED: LORazepam 0.5 MG TABLET PO PRN
[2023-03-14] MEDS ORDERED: LORazepam 0.5 MG TABLET PO SCH (05:00)
[2023-03-15] MEDS ORDERED: chlordiazePOXIDE HCL 10 MG CAPSULE PO PRN
[2023-03-15] MEDS ORDERED: chlordiazePOXIDE HCL 10 MG CAPSULE PO SCH (05:00)
[2023-03-15] MEDS ORDERED: LORazepam 0.5 MG TABLET PO ONE (05:00)
[2023-03-16] MEDS ORDERED: chlordiazePOXIDE HCL 10 MG CAPSULE PO SCH (05:00)
[2023-03-17] MEDS ORDERED: chlordiazePOXIDE HCL 10 MG CAPSULE PO ONE (05:00)
== END 2023-03-13 17:05 | disposition left against medical advice (07) | DRG 770 ==
LOC: YASAS 17:23 → Y3N 03-12 01:56
PROVIDERS: ADMIT Allergy & Immunology; ATTEND Allergy & Immunology
PROC: HZ2ZZZZ Detoxification Services for Substance Abuse Treatment (ICD-10-PCS; principal; 2023-03-12)
DX: F10.230 Alcohol dependence with withdrawal, uncomplicated (principal); F14.20 Cocaine dependence, uncomplicated; F41.9 Anxiety disorder, unspecified; F43.10 Post-traumatic stress disorder, unspecified; E78.5 Hyperlipidemia, unspecified; I10 Essential (primary) hypertension; J45.20 Mild intermittent asthma, uncomplicated; K70.30 Alcoholic cirrhosis of liver without ascites; Z87.891 Personal history of nicotine dependence; Z87.19 Personal history of other diseases of the digestive system
CPT/HCPCS: 36415; 80048; 80053; 85027; 86780; 87389; 87529; 93005; 93010; C9803-CS; U0003; U0005

== ENCOUNTER 2023-04-11 16:24 | Inpatient (IN) | payer OTHER ==
[2023-04-11 16:59] VITALS: BMI 29.1
[2023-04-11] MEDS ORDERED: ALBUTEROL SO4 HFA INHALER IH PRN (18:21)
[2023-04-11] MEDS ORDERED: LOPERAMIDE HCL 2 MG CAPSULE PO PRN (18:40)
[2023-04-11] MEDS ORDERED: NALOXONE HCL (KLOXXADO) 8 MG SPRAY NS PRN (18:40)
[2023-04-11] MEDS ORDERED: NALOXONE HCL 0.4 MG/ML VIAL IM PRN (18:40)
[2023-04-11] MEDS ORDERED: METHOCARBAMOL 500 MG TABLET PO PRN (18:40)
[2023-04-11] MEDS ORDERED: POLYETHYLENE GLYCOL (HEALTHYLAX) 3350 17 GM PACKET PO PRN (18:40)
[2023-04-11] MEDS ORDERED: P-EPHED 60MG/TRIPROLIDI 2.5MG TABLET PO PRN (18:40)
[2023-04-11] MEDS ORDERED: guaiFENesin 600 MG TABLET.ER (FP) PO PRN (18:40)
[2023-04-11] MEDS ORDERED: MAGNESIUM HYDROX 2400MG/30ML ORAL SUSPENSION 30 ML CUP PO PRN (18:40)
[2023-04-11] MEDS ORDERED: MAG HYDROX/AL HYDROX/SIMETH 30 ML UNIT-DOSE CUP PO PRN (18:40)
[2023-04-11] MEDS ORDERED: BENZOCAINE/MENTHOL (CHLORASEPTIC ) LOZENGE MM PRN (18:40)
[2023-04-11] MEDS ORDERED: ACETAMINOPHEN 325 MG TABLET (FP) PO PRN (18:40)
[2023-04-11] MEDS ORDERED: BENZONATATE 200 MG CAPSULE PO PRN (18:40)
[2023-04-11] MEDS ORDERED: ONDANSETRON *ODT* 4 MG TABLET SL PRN (18:40)
[2023-04-11] MEDS ORDERED: DICYCLOMINE HCL 10 MG CAPSULE PO PRN (18:40)
[2023-04-11] MEDS ORDERED: IBUPROFEN 400 MG TABLET (FP) PO PRN (18:40)
[2023-04-11] MEDS ORDERED: BISMUTH SUBSALICYLATE 524 MG/30 ML PO PRN (18:40)
[2023-04-11] MEDS ORDERED: IBUPROFEN 600 MG TABLET (FP) PO PRN (18:40)
[2023-04-11] MEDS ORDERED: chlordiazePOXIDE HCL 25 MG CAPSULE PO ONE (18:43)
[2023-04-11] MEDS ORDERED: chlordiazePOXIDE HCL 25 MG CAPSULE ONE (19:05)
[2023-04-11] MEDS: THIAMINE HCL 100 MG TABLET (FP) PO SCH (22:16)
[2023-04-11] MEDS: MELATONIN 5 MG TABLETS PO PRN (22:16)
[2023-04-11] MEDS: chlordiazePOXIDE HCL 25 MG CAPSULE PO SCH (22:16)
[2023-04-12] MEDS: chlordiazePOXIDE HCL 25 MG CAPSULE PO SCH ×4 (05:29→22:09)
[2023-04-12] MEDS: hydrOXYzine PAMOATE 25 MG CAPSULE (FP) PO PRN ×2 (05:30→22:13)
[2023-04-12] MEDS ORDERED: cloNIDine HCL 0.1 MG TABLET PO PRN (09:59)
[2023-04-12] MEDS: PRENATAL VITAMINS W/ FOLIC ACID TABLET (FP) PO SCH (10:53)
[2023-04-12] MEDS: chlordiazePOXIDE HCL 25 MG CAPSULE PO PRN (19:40)
[2023-04-12] MEDS: THIAMINE HCL 100 MG TABLET (FP) PO SCH (22:09)
[2023-04-12] MEDS: MELATONIN 5 MG TABLETS PO PRN (22:10)
[2023-04-13] MEDS: chlordiazePOXIDE HCL 25 MG CAPSULE PO PRN (02:59)
[2023-04-13] MEDS: chlordiazePOXIDE HCL 25 MG CAPSULE PO SCH ×2 (05:12→10:17)
[2023-04-13 09:57] VITALS: BP 140/102; PULSE 82; RESP 18; TEMP 97.1
[2023-04-13] MEDS: PRENATAL VITAMINS W/ FOLIC ACID TABLET (FP) PO SCH (09:58)
[2023-04-14] MEDS ORDERED: chlordiazePOXIDE HCL 10 MG CAPSULE PO PRN
[2023-04-14] MEDS ORDERED: chlordiazePOXIDE HCL 10 MG CAPSULE PO SCH (05:00)
[2023-04-15] MEDS ORDERED: chlordiazePOXIDE HCL 10 MG CAPSULE PO SCH (05:00)
[2023-04-16] MEDS ORDERED: chlordiazePOXIDE HCL 10 MG CAPSULE PO ONE (05:00)
== END 2023-04-13 09:54 | disposition left against medical advice (07) | DRG 770 ==
LOC: YASAS 16:24 → Y6N 18:50
PROVIDERS: ADMIT Allergy & Immunology; ATTEND Surgery
PROC: HZ2ZZZZ Detoxification Services for Substance Abuse Treatment (ICD-10-PCS; principal; 2023-04-11)
DX: F10.230 Alcohol dependence with withdrawal, uncomplicated (principal); F17.210 Nicotine dependence, cigarettes, uncomplicated; F10.280 Alcohol dependence with alcohol-induced anxiety disorder; F10.282 Alcohol dependence with alcohol-induced sleep disorder; E78.5 Hyperlipidemia, unspecified; G47.33 Obstructive sleep apnea (adult) (pediatric); J45.20 Mild intermittent asthma, uncomplicated; K70.30 Alcoholic cirrhosis of liver without ascites; Z62.810 Personal history of physical and sexual abuse in childhood; Z87.891 Personal history of nicotine dependence
CPT/HCPCS: 82962; Q0162

== ENCOUNTER 2024-03-16 07:22 | Emergency (ER) | payer OTHER ==
[2024-03-16 07:45] VITALS: BP 140/90; PULSE 91; RESP 16; TEMP 98.5; BMI 31.5
== END 2024-03-16 08:29 | disposition short-term general hospital (02) ==
LOC: JER 07:22
DX: F10.129 Alcohol abuse with intoxication, unspecified (principal); Y90.9 Presence of alcohol in blood, level not specified
CPT/HCPCS: 99285-25

== ENCOUNTER 2024-03-16 10:18 | Inpatient (IN) | payer OTHER ==
[2024-03-16 11:00] VITALS: BMI 34.7
[2024-03-16] MEDS ORDERED: ACETAMINOPHEN 325 MG TABLET (FP) PO PRN (11:52)
[2024-03-16] MEDS ORDERED: BISMUTH SUBSALICYLATE 262 MG/15 ML BTL PO PRN (11:52)
[2024-03-16] MEDS ORDERED: BENZONATATE 200 MG CAPSULE PO PRN (11:52)
[2024-03-16] MEDS ORDERED: guaiFENesin 600 MG TABLET.ER (FP) PO PRN (11:52)
[2024-03-16] MEDS ORDERED: IBUPROFEN 400 MG TABLET (FP) PO PRN (11:52)
[2024-03-16] MEDS ORDERED: NALOXONE HCL 0.4 MG/ML VIAL IM PRN (11:52)
[2024-03-16] MEDS ORDERED: LOPERAMIDE HCL 2 MG CAPSULE PO PRN (11:52)
[2024-03-16] MEDS ORDERED: hydrOXYzine PAMOATE 25 MG CAPSULE (FP) PO PRN (11:52)
[2024-03-16] MEDS ORDERED: METHOCARBAMOL 500 MG TABLET PO PRN (11:52)
[2024-03-16] MEDS ORDERED: NALOXONE HCL (KLOXXADO) 8 MG SPRAY NS PRN (11:52)
[2024-03-16] MEDS ORDERED: MAG HYDROX/AL HYDROX/SIMETH 30 ML UNIT-DOSE CUP PO PRN (11:52)
[2024-03-16] MEDS ORDERED: POLYETHYLENE GLYCOL (HEALTHYLAX) 3350 17 GM PACKET PO PRN (11:52)
[2024-03-16] MEDS ORDERED: BENZOCAINE/MENTHOL (CHLORASEPTIC ) LOZENGE MM PRN (11:52)
[2024-03-16] MEDS ORDERED: ALBUTEROL SO4 HFA INHALER IH ONE (12:33)
[2024-03-16] MEDS: ALBUTEROL SO4 HFA INHALER IH SCH (12:52)
[2024-03-16] MEDS: chlordiazePOXIDE HCL 25 MG CAPSULE PO PRN (13:34)
[2024-03-16] MEDS: ONDANSETRON *ODT* 4 MG TABLET SL PRN (13:34)
[2024-03-16] MEDS: MAGNESIUM HYDROX 2400MG/30ML ORAL SUSPENSION 30 ML CUP PO PRN (16:34)
[2024-03-16] MEDS: chlordiazePOXIDE HCL 25 MG CAPSULE PO SCH (17:11)
[2024-03-16] MEDS: DICYCLOMINE HCL 10 MG CAPSULE PO PRN (19:09)
[2024-03-16] MEDS: MELATONIN 5 MG TABLETS PO SCH (22:12)
[2024-03-16] MEDS: THIAMINE 100 MG TABLET PO SCH (22:12)
[2024-03-17] MEDS: PRENATAL VITAMINS W/ FOLIC ACID TABLET (FP) PO SCH (10:23)
[2024-03-17] MEDS: LORATADINE 10 MG TABLET PO SCH (10:23)
[2024-03-17 11:38] LABS: HEMATOCRIT 40.7 % (35.4-49); HEMOGLOBIN 13.8 GM/dL (11.7-16.9); MCH 30.7 pg (25.7-33.7); MCHC 33.9 g/dl (32.0-35.9); MEAN CELL VOLUME 90.4 fl (80-96); MEAN PLT VOLUME 7.3 fl (7.5-11.1); PLATELET COUNT 181 10^3/uL (134-434); RDW 13.9 % (11.9-15.9); WHITE BLOOD COUNT 7.6 K/mm3 (4.0-10.0)
[2024-03-17 11:42] LABS: POTASSIUM 3.4 mmol/L (3.5-5.1)
[2024-03-17 11:47] LABS: CALCIUM 9.1 mg/dL (8.5-10.1)
[2024-03-17 11:51] LABS: CREATININE 0.8 mg/dL (0.55-1.3)
[2024-03-17 11:52] LABS: BILIRUBIN,TOTAL 1.4 mg/dL (0.2-1)
[2024-03-17 11:53] LABS: TOT PROT 7.8 g/dl (6.4-8.2)
[2024-03-17] MEDS: IBUPROFEN 600 MG TABLET (FP) PO PRN (12:01)
[2024-03-17] MEDS: POTASSIUM CHLORIDE ORAL LIQUID 20 MEQ/15 ML PO ONE ×2 (12:08→17:52)
[2024-03-17 12:44] LABS: HIV INTERPRETATION NEGATIVE (NEGATIVE)
[2024-03-17] MEDS: LORazepam 1 MG TABLET PO PRN (13:15)
[2024-03-17] MEDS: LORazepam 2 MG TABLET PO SCH (16:59)
[2024-03-17 17:11] VITALS: BP 136/97; PULSE 110; RESP 16; TEMP 98.2
[2024-03-17] MEDS ORDERED: POTASSIUM CHLORIDE ORAL LIQUID 20 MEQ/15 ML PO SCH (22:00)
[2024-03-18] MEDS ORDERED: chlordiazePOXIDE HCL 25 MG CAPSULE PO SCH (05:00)
[2024-03-19] MEDS ORDERED: chlordiazePOXIDE HCL 10 MG CAPSULE PO PRN
[2024-03-19] MEDS ORDERED: LORazepam 0.5 MG TABLET PO PRN
[2024-03-19] MEDS ORDERED: LORazepam 1 MG TABLET PO SCH (05:00)
[2024-03-19] MEDS ORDERED: chlordiazePOXIDE HCL 10 MG CAPSULE PO SCH (05:00)
[2024-03-20] MEDS ORDERED: chlordiazePOXIDE HCL 10 MG CAPSULE PO SCH (05:00)
[2024-03-20] MEDS ORDERED: LORazepam 0.5 MG TABLET PO SCH (05:00)
[2024-03-21] MEDS ORDERED: chlordiazePOXIDE HCL 10 MG CAPSULE PO ONE (05:00)
== END 2024-03-17 18:09 | disposition left against medical advice (07) | DRG 770 ==
LOC: YASAS 10:18 → Y6N 12:14
PROVIDERS: ADMIT Allergy & Immunology; ATTEND Surgery
PROC: HZ2ZZZZ Detoxification Services for Substance Abuse Treatment (ICD-10-PCS; principal; 2024-03-16)
DX: F10.230 Alcohol dependence with withdrawal, uncomplicated (principal); F12.20 Cannabis dependence, uncomplicated; F41.9 Anxiety disorder, unspecified; F43.10 Post-traumatic stress disorder, unspecified; E72.20 Disorder of urea cycle metabolism, unspecified; E87.6 Hypokalemia; E78.5 Hyperlipidemia, unspecified; G47.30 Sleep apnea, unspecified; I10 Essential (primary) hypertension; K70.30 Alcoholic cirrhosis of liver without ascites; J45.20 Mild intermittent asthma, uncomplicated; Z86.59 Personal history of other mental and behavioral disorders
CPT/HCPCS: 36415; 80053; 80305; 80307; 82140; 85027; 86780; 87389; 87522; 93005; 93010; Q0162

== ENCOUNTER 2024-09-27 12:12 | Inpatient (IN) | payer OTHER ==
[2024-09-27 12:44] VITALS: BMI 35.6
[2024-09-27] MEDS ORDERED: NICOTINE POLACRILEX 2 MG LOZENGE BC PRN (14:14)
[2024-09-27] MEDS ORDERED: POLYETHYLENE GLYCOL (HEALTHYLAX) 3350 17 GM PACKET PO PRN (14:14)
[2024-09-27] MEDS ORDERED: NICOTINE POLACRILEX 2 MG GUM BUC PRN (14:14)
[2024-09-27] MEDS ORDERED: IBUPROFEN 400 MG TABLET (FP) PO PRN (14:14)
[2024-09-27] MEDS ORDERED: DICYCLOMINE HCL 10 MG CAPSULE PO PRN (14:14)
[2024-09-27] MEDS ORDERED: BISMUTH SUBSALICYLATE 262 MG/15 ML BTL PO PRN (14:14)
[2024-09-27] MEDS ORDERED: guaiFENesin 600 MG TABLET.ER (FP) PO PRN (14:14)
[2024-09-27] MEDS ORDERED: BENZONATATE 200 MG CAPSULE PO PRN (14:14)
[2024-09-27] MEDS ORDERED: BENZOCAINE/MENTHOL (CHLORASEPTIC ) LOZENGE MM PRN (14:14)
[2024-09-27] MEDS ORDERED: MAGNESIUM HYDROX 2400MG/30ML ORAL SUSPENSION 30 ML CUP PO PRN (14:14)
[2024-09-27] MEDS ORDERED: levETIRAcetam 500 MG TABLET (FP) PO ONE (14:23)
[2024-09-27] MEDS ORDERED: METOPROLOL TARTRATE 25 MG TABLET (FP) ONE (14:23)
[2024-09-27] MEDS: levETIRAcetam 500 MG TABLET (FP) PO SCH (14:24)
[2024-09-27] MEDS: chlordiazePOXIDE HCL 25 MG CAPSULE PO ONE (14:24)
[2024-09-27] MEDS: METOPROLOL TARTRATE 25 MG TABLET (FP) PO ONE (14:24)
[2024-09-27] MEDS: chlordiazePOXIDE HCL 25 MG CAPSULE PO SCH (17:19)
[2024-09-27] MEDS: LOPERAMIDE HCL 2 MG CAPSULE PO PRN (17:27)
[2024-09-27] MEDS: ONDANSETRON *ODT* 4 MG TABLET SL PRN (17:28)
[2024-09-27] MEDS: METHOCARBAMOL 500 MG TABLET PO PRN (17:30)
[2024-09-27] MEDS: MELATONIN 5 MG TABLETS PO SCH (22:37)
[2024-09-27] MEDS: amLODIPine BESYLATE 10 MG TABLET (FP) PO SCH (22:37)
[2024-09-27] MEDS: THIAMINE 100 MG TABLET PO SCH (22:37)
[2024-09-28] MEDS: KETOCONAZOLE 2% CREAM - 60GM TUBE TP SCH (10:00)
[2024-09-28] MEDS: PRENATAL VITAMINS W/ FOLIC ACID TABLET (FP) PO SCH (10:39)
[2024-09-28 12:48] LABS: HEMATOCRIT 43.4 % (35.4-49); HEMOGLOBIN 14.2 GM/dL (11.7-16.9); MCH 30.1 pg (25.7-33.7); MCHC 32.7 g/dl (32.0-35.9); MEAN CELL VOLUME 92.1 fl (80-96); MEAN PLT VOLUME 7.5 fl (7.5-11.1); PLATELET COUNT 243 10^3/uL (134-434); RBC 4.71 M/mm3 (4.00-5.60); RDW 14.7 % (11.9-15.9); WHITE BLOOD COUNT 7.7 K/mm3 (4.0-10.0)
[2024-09-28 12:53] LABS: POTASSIUM 3.5 mmol/L (3.5-5.1)
[2024-09-28 12:58] LABS: ALBUMIN 3.4 g/dl (3.4-5.0); BLOOD UREA NITROGEN 9.3 mg/dL (7-18)
[2024-09-28 13:01] LABS: CREATININE 0.9 mg/dL (0.55-1.3)
[2024-09-28 13:03] LABS: BILIRUBIN,TOTAL 0.9 mg/dL (0.2-1); TOT PROT 7.6 g/dl (6.4-8.2)
[2024-09-28 17:11] LABS: HIV INTERPRETATION NEGATIVE (NEGATIVE)
[2024-09-28] MEDS: ACETAMINOPHEN 325 MG TABLET (FP) PO PRN (17:41)
[2024-09-28] MEDS: MAG HYDROX/AL HYDROX/SIMETH 30 ML UNIT-DOSE CUP PO PRN (17:41)
[2024-09-28] MEDS: chlordiazePOXIDE HCL 25 MG CAPSULE PO PRN (19:49)
[2024-09-28] MEDS: ALBUTEROL SO4 HFA INHALER IH PRN (22:14)
[2024-09-29] MEDS: hydrOXYzine PAMOATE 25 MG CAPSULE (FP) PO PRN (01:09)
[2024-09-29] MEDS: chlordiazePOXIDE HCL 25 MG CAPSULE PO SCH (05:55)
[2024-09-29] MEDS: IBUPROFEN 600 MG TABLET (FP) PO PRN (17:44)
[2024-09-30] MEDS ORDERED: chlordiazePOXIDE HCL 10 MG CAPSULE PO PRN
[2024-09-30] MEDS: chlordiazePOXIDE HCL 10 MG CAPSULE PO SCH (05:55)
[2024-09-30 07:17] VITALS: BP 131/90; PULSE 66; RESP 17; TEMP 97.8
[2024-09-30] MEDS: NALOXONE (NYS OPIOID OVERDOSE PROGRAM) 4 MG/0.1 ML SPRAY NS SCH (16:04)
[2024-10-01] MEDS ORDERED: chlordiazePOXIDE HCL 10 MG CAPSULE PO SCH (05:00)
[2024-10-02] MEDS ORDERED: chlordiazePOXIDE HCL 10 MG CAPSULE PO ONE (05:00)
== END 2024-09-30 16:00 | disposition home or self-care (01) | DRG 775 ==
LOC: YASAS 12:12 → Y6N 15:30
PROVIDERS: ADMIT Allergy & Immunology; ATTEND Surgery
PROC: HZ2ZZZZ Detoxification Services for Substance Abuse Treatment (ICD-10-PCS; principal; 2024-09-27)
DX: F10.230 Alcohol dependence with withdrawal, uncomplicated (principal); F12.20 Cannabis dependence, uncomplicated; F41.8 Other specified anxiety disorders; F43.10 Post-traumatic stress disorder, unspecified; I10 Essential (primary) hypertension; J45.20 Mild intermittent asthma, uncomplicated; B35.6 Tinea cruris; R79.89 Other specified abnormal findings of blood chemistry; Z87.891 Personal history of nicotine dependence
CPT/HCPCS: 36415; 80053; 80305; 80307; 85027; 86803; 87389; Q0162

== ENCOUNTER 2024-11-21 10:50 | Inpatient (IN) | payer OTHER ==
[2024-11-21 11:22] VITALS: BMI 36.2
[2024-11-21] MEDS ORDERED: ACETAMINOPHEN 325 MG TABLET (FP) PO PRN (11:46)
[2024-11-21] MEDS ORDERED: guaiFENesin 600 MG TABLET.ER (FP) PO PRN (11:46)
[2024-11-21] MEDS ORDERED: IBUPROFEN 600 MG TABLET (FP) PO PRN (11:46)
[2024-11-21] MEDS ORDERED: MAGNESIUM HYDROX 2400MG/30ML ORAL SUSPENSION 30 ML CUP PO PRN (11:46)
[2024-11-21] MEDS ORDERED: LOPERAMIDE HCL 2 MG CAPSULE PO PRN (11:46)
[2024-11-21] MEDS ORDERED: MAG HYDROX/AL HYDROX/SIMETH 30 ML UNIT-DOSE CUP PO PRN (11:46)
[2024-11-21] MEDS ORDERED: IBUPROFEN 400 MG TABLET (FP) PO PRN (11:46)
[2024-11-21] MEDS ORDERED: BISMUTH SUBSALICYLATE 262 MG/15 ML BTL PO PRN (11:46)
[2024-11-21] MEDS ORDERED: DICYCLOMINE HCL 10 MG CAPSULE PO PRN (11:46)
[2024-11-21] MEDS ORDERED: BENZONATATE 200 MG CAPSULE PO PRN (11:46)
[2024-11-21] MEDS ORDERED: POLYETHYLENE GLYCOL (HEALTHYLAX) 3350 17 GM PACKET PO PRN (11:46)
[2024-11-21] MEDS ORDERED: ONDANSETRON *ODT* 4 MG TABLET SL PRN (11:46)
[2024-11-21] MEDS ORDERED: BENZOCAINE/MENTHOL (CHLORASEPTIC ) LOZENGE MM PRN (11:46)
[2024-11-21] MEDS ORDERED: NALOXONE (NARCAN) HCL 4 MG/0.1 ML SPRAY NS PRN (11:46)
[2024-11-21] MEDS: METHOCARBAMOL 500 MG TABLET PO PRN (13:22)
[2024-11-21] MEDS: diazePAM 5 MG TABLET PO PRN (13:22)
[2024-11-21] MEDS ORDERED: ALBUTEROL SO4 HFA INHALER IH PRN (14:28)
[2024-11-21] MEDS: diazePAM 5 MG TABLET PO SCH (17:26)
[2024-11-21] MEDS: ALBUTEROL SO4 HFA INHALER IH PRN (17:26)
[2024-11-21] MEDS: MELATONIN 5 MG TABLETS PO SCH (22:09)
[2024-11-21] MEDS: amLODIPine BESYLATE 10 MG TABLET (FP) PO SCH (22:09)
[2024-11-21] MEDS: THIAMINE 100 MG TABLET PO SCH (22:09)
[2024-11-21] MEDS: levETIRAcetam 500 MG TABLET (FP) PO SCH (22:09)
[2024-11-22] MEDS: SERTRALINE HCL 25 MG TABLET (FP) PO SCH (10:15)
[2024-11-22] MEDS: PRENATAL VITAMINS W/ FOLIC ACID TABLET (FP) PO SCH (10:15)
[2024-11-22] MEDS: hydrOXYzine PAMOATE 25 MG CAPSULE (FP) PO PRN (10:16)
[2024-11-22 12:25] LABS: HEMATOCRIT 41.7 % (35.4-49); HEMOGLOBIN 14.3 GM/dL (11.7-16.9); MCH 31.6 pg (25.7-33.7); MCHC 34.3 g/dl (32.0-35.9); MEAN CELL VOLUME 92.3 fl (80-96); MEAN PLT VOLUME 7.2 fl (7.5-11.1); PLATELET COUNT 411 10^3/uL (134-434); RBC 4.52 M/mm3 (4.00-5.60); RDW 15.2 % (11.9-15.9); WHITE BLOOD COUNT 8.1 K/mm3 (4.0-10.0)
[2024-11-22 13:11] LABS: CHLORIDE 106 mmol/L (98-107); POTASSIUM 4.2 mmol/L (3.5-5.1); SODIUM 140 mmol/L (136-145)
[2024-11-22 13:20] LABS: CALCIUM 9.3 mg/dL (8.5-10.1)
[2024-11-22 13:21] LABS: ALBUMIN 3.5 g/dl (3.4-5.0); ANION GAP 6 mmol/L (4-13); BLOOD UREA NITROGEN 7.4 mg/dL (7-18); CO2 27 mmol/L (21-32); GLUCOSE,RANDOM 94 mg/dL (74-106)
[2024-11-22 13:23] LABS: SGPT/ALT 39 U/L (13-61)
[2024-11-22 13:24] LABS: CREATININE 0.8 mg/dL (0.55-1.3); SGOT/AST 24 U/L (15-37)
[2024-11-22 13:25] LABS: BILIRUBIN,TOTAL 0.3 mg/dL (0.2-1); TOT PROT 7.3 g/dl (6.4-8.2)
[2024-11-22 13:26] LABS: ALK PHOS 108 U/L (45-117)
[2024-11-22 13:51] LABS: HIV INTERPRETATION NEGATIVE (NEGATIVE)
[2024-11-22] MEDS: MELATONIN 5 MG TABLETS PO SCH (22:10)
[2024-11-23] MEDS: diazePAM 5 MG TABLET PO SCH (05:27)
[2024-11-23] MEDS: LACTULOSE 20 GM/30 ML UDC (FOR ORAL USE ONLY) PO SCH (14:16)
[2024-11-23] MEDS: hydrOXYzine PAMOATE 50 MG CAPSULE (FP) PO PRN (17:36)
[2024-11-23] MEDS: METHOCARBAMOL 500 MG TABLET PO PRN (22:20)
[2024-11-24] MEDS: diazePAM 5 MG TABLET PO SCH (05:47)
[2024-11-24] MEDS: CHLORHEXIDINE GLUCONATE 0.12% 15ML CUP MM ONE (17:55)
[2024-11-24] MEDS: CHLORHEXIDINE GLUCONATE 0.12% 15ML CUP MM SCH (23:12)
[2024-11-25] MEDS: diazePAM 5 MG TABLET PO ONE (05:47)
[2024-11-25 09:05] VITALS: BP 130/91; PULSE 96; RESP 19; TEMP 97.7
== END 2024-11-25 10:30 | disposition home or self-care (01) | DRG 775 ==
LOC: YASAS 10:50 → Y3N 11:56
PROVIDERS: ADMIT Allergy & Immunology; ATTEND Allergy & Immunology
PROC: HZ2ZZZZ Detoxification Services for Substance Abuse Treatment (ICD-10-PCS; principal; 2024-11-21)
DX: F10.230 Alcohol dependence with withdrawal, uncomplicated (principal); F12.20 Cannabis dependence, uncomplicated; F19.282 Other psychoactive substance dependence with psychoactive substance-induced sleep disorder; F19.280 Other psychoactive substance dependence with psychoactive substance-induced anxiety disorder; F19.24 Other psychoactive substance dependence with psychoactive substance-induced mood disorder; F43.10 Post-traumatic stress disorder, unspecified; I10 Essential (primary) hypertension; K74.60 Unspecified cirrhosis of liver; G47.33 Obstructive sleep apnea (adult) (pediatric); J45.20 Mild intermittent asthma, uncomplicated; M54.41 Lumbago with sciatica, right side; M54.42 Lumbago with sciatica, left side; G89.29 Other chronic pain
CPT/HCPCS: 36415; 80053; 80305; 80307; 82140; 85027; 86780; 86803; 87389; 93005; 93010

== ENCOUNTER 2025-07-25 12:05 | Inpatient (IN) | payer OTHER ==
[2025-07-25] MEDS ORDERED: guaiFENesin 600 MG TABLET.ER (FP) PO PRN (13:05)
[2025-07-25] MEDS ORDERED: BENZONATATE 200 MG CAPSULE PO PRN (13:05)
[2025-07-25] MEDS ORDERED: BENZOCAINE/MENTHOL (CHLORASEPTIC ) LOZENGE MM PRN (13:05)
[2025-07-25] MEDS ORDERED: BISMUTH SUBSALICYLATE 524 MG/30 ML PO PRN (13:05)
[2025-07-25] MEDS ORDERED: LOPERAMIDE HCL 2 MG CAPSULE PO PRN (13:05)
[2025-07-25] MEDS ORDERED: NICOTINE POLACRILEX 2 MG LOZENGE BC PRN (13:05)
[2025-07-25] MEDS ORDERED: DICYCLOMINE HCL 10 MG CAPSULE PO PRN (13:05)
[2025-07-25] MEDS ORDERED: MAG HYDROX/AL HYDROX/SIMETH 30 ML UNIT-DOSE CUP PO PRN (13:05)
[2025-07-25] MEDS ORDERED: POLYETHYLENE GLYCOL (HEALTHYLAX) 3350 17 GM PACKET PO PRN (13:05)
[2025-07-25] MEDS ORDERED: NALOXONE (NARCAN) HCL 4 MG/0.1 ML SPRAY NS PRN (13:05)
[2025-07-25] MEDS ORDERED: NICOTINE POLACRILEX 2 MG GUM BUC PRN (13:05)
[2025-07-25] MEDS ORDERED: IBUPROFEN 400 MG TABLET (FP) PO PRN (13:05)
[2025-07-25] MEDS ORDERED: MAGNESIUM HYDROX 2400MG/30ML ORAL SUSPENSION 30 ML CUP PO PRN (13:05)
[2025-07-25 13:06] VITALS: BMI 36.6
[2025-07-25] MEDS ORDERED: levETIRAcetam 500 MG TABLET (FP) PO ONE (13:30)
[2025-07-25] MEDS: levETIRAcetam 500 MG TABLET (FP) PO SCH (13:32)
[2025-07-25] MEDS ORDERED: ALBUTEROL SO4 HFA INHALER IH PRN (17:20)
[2025-07-25] MEDS: MELATONIN 5 MG TABLETS PO SCH (22:13)
[2025-07-25] MEDS: amLODIPine BESYLATE 10 MG TABLET (FP) PO SCH (22:14)
[2025-07-25] MEDS: THIAMINE 100 MG TABLET PO SCH (22:14)
[2025-07-26] MEDS: PRENATAL VITAMINS W/ FOLIC ACID TABLET (FP) PO SCH (10:13)
[2025-07-26] MEDS: IBUPROFEN 600 MG TABLET (FP) PO PRN (10:14)
[2025-07-26] MEDS: FLU VACC TS2025-26(6MOS UP)/PF 45 MCG/0.5 ML SYRINGE IM ONE (11:25)
[2025-07-26 12:14] LABS: MCHC 32.2 g/dl (32.3-36.5); MEAN CELL VOLUME 88.1 fl (79.0-92.2); MEAN PLT VOLUME 10.0 fl (9.4-12.4); RDW 13.5 % (12.1-15.9)
[2025-07-26 12:51] LABS: GLUCOSE,RANDOM 105.0 mg/dL (74-106); TOT PROT 7.7 g/dl (6.4-8.2)
[2025-07-26 12:52] LABS: CO2 23.0 mmol/L (21-32)
[2025-07-26 12:54] LABS: ALK PHOS 128.0 U/L (40-150)
[2025-07-26 12:56] LABS: SGPT/ALT 22.0 U/L (0-55)
[2025-07-26 12:57] LABS: CREATININE 0.75 mg/dL (0.55-1.3); SGOT/AST 31.0 U/L (5-34)
[2025-07-26 13:04] LABS: HIV INTERPRETATION NEGATIVE (NEGATIVE)
[2025-07-26] MEDS: ACETAMINOPHEN 325 MG TABLET (FP) PO PRN (17:45)
[2025-07-26] MEDS: ONDANSETRON *ODT* 4 MG TABLET SL PRN (19:59)
[2025-07-27] MEDS: GABAPENTIN 100 MG CAPSULE PO SCH (14:50)
[2025-07-27] MEDS: hydrOXYzine PAMOATE 25 MG CAPSULE (FP) PO PRN (22:38)
[2025-07-28] MEDS: METHOCARBAMOL 500 MG TABLET PO PRN (05:58)
[2025-07-28] MEDS ORDERED: GABAPENTIN 100 MG CAPSULE PO SCH (15:08)
[2025-07-28 18:49] VITALS: BP 116/86; PULSE 91; RESP 17; TEMP 97.8
[2025-07-28] MEDS: GABAPENTIN 300 MG CAPSULE PO SCH (22:32)
== END 2025-07-29 09:44 | disposition short-term general hospital (02) | DRG 775 ==
LOC: YASAS 12:05 → Y6N 13:54
PROVIDERS: ADMIT Neuromusculoskeletal Medicine & OMM; ATTEND Counselor Addiction (Substance Use Disorder)
PROC: HZ2ZZZZ Detoxification Services for Substance Abuse Treatment (ICD-10-PCS; principal; 2025-07-25)
DX: F10.230 Alcohol dependence with withdrawal, uncomplicated (principal); F12.20 Cannabis dependence, uncomplicated; F43.10 Post-traumatic stress disorder, unspecified; F32.A Depression, unspecified; I10 Essential (primary) hypertension; J45.20 Mild intermittent asthma, uncomplicated; R45.851 Suicidal ideations
CPT/HCPCS: 36415; 80053; 80307; 85027; 86780; 87389; 90656; G0008; Q0162